=== PATIENT | female | born 1940 | race Asian ===

== ENCOUNTER → 2017-04-02 | Outpatient (CLI) | payer MEDICARE, OTHER ==
--- NOTE | 2017-04-02 10:30 | RADIOLOGY REPORT (SQ) ---
EXAM DESCRIPTION: MRI HEAD COMBO COMPLETED DATE/TIME: 04/02/2017 8:17 am REASON FOR STUDY: OTHER LOCALIZED VISUAL FIELD DEFECT, BILATERAL (H53.453) H53.453 OTHER LOCALIZED VISUAL FIELD DEFECT, BILATERAL COMPARISON: Whole-body bone scan 05/15/2015 TECHNIQUE: Multiplanar imaging includes noncontrasted T1, T2, FLAIR, diffusion with ADC map and post gadolinium contrast T1 sequences. Additional thin section coronal and axial T2 fat-sat, T1 precontrast coronal and axial images, T1 fat -sat postcontrast coronal and axial images through the orbits and sella. Images stored on PACS. CONTRAST TYPE AND DOSE: 10 mL Multihance. RENAL FUNCTION: GFR > 60. LIMITATIONS: None. FINDINGS: PITUITARY FOSSA: Along the rightward half of the anterior lobe pituitary, a 9 x 7 x 5 mm well-circumscribed nodule is present, intermediate signal on T2 and decreased signal on T1. This enh ances to a lesser degree than the [place] pituitary gland on the post-contrast images. There is a thi n rim of normal pituitary gland between this nodule and the right cavernous sinus on coronal T1 postc ontrast images 15-17. This likely represents a small microadenoma. Pituitary cyst or craniopharyngi freddy are also possible. There is no deviation of the pituitary stalk from midline. No impression on the optic chiasm. Suprasellar cistern is unremarkable on coronal T2 image 16. CSF SPACES: Normal in size and contour. No hemorrhage. CEREBRUM: Sulci and gyri normal in size and contour. Normal white matter signal on FLAIR imaging. No evidence of hemorrhage, mass, or extraaxial fluid collection. No abnormal enhancement post contrast. POSTERIOR FOSSA: No signal alteration. No hemorrhage. No edema, masses, or mass effect. Internal dave tory canals, cerebellopontine angles, mastoids normal. No enhancing lesions. No abnormal enhancement post contrast. DIFFUSION IMAGING: Negative for acute or subacute infarction. ORBITS: Globes are post bilateral cataract surgery. Optic nerves are unremarkable. No abnormal mass es or enhancement. Intra and extraconal fat, extraocular muscles, lacrimal apparatus unremarkable bi laterally. PARANASAL SINUSES: No fluid levels. Mucosa normal. OTHER: No other significant finding. IMPRESSION: Incidental finding of a 9 x 7 x 5 mm pituitary nodule likely a microadenoma. No mass ef fect on the optic chiasm. Midline infundibulum. No cavernous sinus involvement. Otherwise unremarkable MRI of the brain and orbits without and with contrast EVIDENCE OF ACUTE STROKE: NO. TECHNICAL DOCUMENTATION: JOB ID: [id number] [employer]- All Rights Reserved
== END ==
LOC: RAD 06:57
PROVIDERS: ATTEND Ophthalmology
DX: H53.453 Other localized visual field defect, bilateral (principal)
CPT/HCPCS: 82565; 70553; A9577

== ENCOUNTER → 2017-07-01 | Outpatient (CLI) | payer MEDICARE ==
--- NOTE | 2017-07-01 14:27 | RADIOLOGY REPORT (SQ) ---
EXAM DESCRIPTION: CT CHEST WITH COMPLETED DATE/TIME: 07/01/2017 1:12 pm REASON FOR STUDY: THORACIC AORTIC ANEURYSM, WITHOUT RUPTURE (I71.2) I71.2 THORACIC AORTIC ANEURYSM, WITHOUT RUPTURE COMPARISON: Thoracic spine two views 08/02/2015 TECHNIQUE: CT scan of the chest performed using helical scanning technique with dynamic intravenous contrast injection. Images reviewed with lung, soft tissue and bone windows. Reconstructed coronal and sagittal MPR images reviewed. All images stored on PACS. All CT scanners at this facility use dose modulation, iterative reconstruction, and/or weight based d osing when appropriate to reduce radiation dose to as low as reasonably achievable (ALARA). [facility]: Dose Right [facility]: CareDose [facility]: Dose Right [facility]: Teradose 4D [facility]: Dots ,LLC CONTRAST TYPE AND DOSE: contrast/concentration: Isovue 370.00 mg/ml; Total Contrast Delivered: 80.0 ml; Total Saline Delivered: 55.0 ml RENAL FUNCTION: Creatinine 0.8 RADIATION DOSE: CT Rad equipment meets quality standard of care and radiation dose reduction techniq ues were employed. CTDIvol: 5.8 mGy. DLP: 173 mGy-cm. . LIMITATIONS: None. FINDINGS: LUNGS AND PLEURA: 5 to 6 mm smooth round subpleural nodule left posterior costophrenic sul cus likely a noncalcified granuloma axial image 57. No acute infiltrates. No pleural effusion. No pneumothorax. Airways are patent. HILAR AND MEDIASTINAL STRUCTURES: No identified masses or abnormal nodes. HEART AND VASCULAR STRUCTURES: No aneurysm or dissection. No central pulmonary emboli. No pericardi al effusion. Minimal coronary artery calcification HARDWARE: None in the chest. UPPER ABDOMEN: Multiple hepatic cysts are present, the largest is 12 cm in the right lobe liver, next largest is 7 cm in the left lobe liver. Post cholecystectomy. Small hiatal hernia. THYROID AND OTHER SOFT TISSUES: No masses. No adenopathy. BONES: No significant finding. OTHER: No other significant finding. IMPRESSION: No CT evidence of thoracic aortic aneurysm Multiple hepatic cysts. TECHNICAL DOCUMENTATION: JOB ID: [id number] Quality ID # [id number]: Final reports with documentation of one or more dose reduction techniques (e.g., Au tomated exposure control, adjustment of the mA and/or kV according to patient size, use of iterative reconstruction technique) 2010 [employer]- All Rights Reserved
== END ==
LOC: RAD 12:30
PROVIDERS: ATTEND Specialist
DX: I71.2 Thoracic aortic aneurysm, without rupture (principal)
CPT/HCPCS: 71260; 82565

== ENCOUNTER 2018-02-23 10:46 | Emergency (ER) | payer MEDICARE, OTHER ==
--- NOTE | 2018-02-23 11:07 | ER Document Report ---
ED Cardiac <SHERLEY MO - Last Filed: 02/23/18 12:21> - General Mode of Arrival: Ambulatory Information source: Patient TRAVEL OUTSIDE OF THE U[place]. IN LAST 30 DAYS: No <NEL ALMONTE - Last Filed: 02/23/18 14:39> - General Stated Complaint: UNRESPONSIVE Time Seen by Provider: 02/23/18 10:51 Notes: Patient is a 77 year old female that presents to the emergency department today with complaints of a syncopal episode that occurred just prior to arrival. According to the , the patient's son was in another room and heard her fall down. When the son got to her she was minimally responsive. On arrival here, patient is alert and responsive with complaints of dizziness. Patient is bradycardic on the monitor here in the upper 30s lower 40s. (NEL ALMONTE) - Related Data Allergies/Adverse Reactions: No Known Allergies Allergy (Unverified 07/13/12 14:11) Past Medical History - General Information source: Patient - Social History Smoking Status: Never Smoker Cigarette use (# per day): No Frequency of alcohol use: None Drug Abuse: None Lives with: Family Family History: Reviewed & Not Pertinent - Past Medical History Cardiac Medical History: Reports: Hx Hypertension Past Surgical History: Reports: Hx Section, Hx Cholecystectomy, Hx Oral Surgery, Hx Orthopedic Surgery - Immunizations Immunizations up to date: Yes Hx Diphtheria, Pertussis, Tetanus Vaccination: No <NEL ALMONTE - Last Filed: 02/23/18 14:39> Review of Systems - Review of Systems Constitutional: No symptoms reported EENT: No symptoms reported Cardiovascular: See HPI, Syncope, Dizziness Respiratory: No symptoms reported Gastrointestinal: No symptoms reported Genitourinary: No symptoms reported Female Genitourinary: No symptoms reported Musculoskeletal: No symptoms reported Skin: No symptoms reported Hematologic/Lymphatic: No symptoms reported Neurological/Psychological: No symptoms reported -: Yes All other systems reviewed and negative <NEL ALMONTE - Last Filed: 02/23/18 14:39> Physical Exam <SHERLEY MO - Last Filed: 02/23/18 12:21> <NEL ALMONTE - Last Filed: 02/23/18 14:39> - Vital signs Vitals: Temp 98.0 F 02/23/18 10:51 - Notes Notes: Physical Exam: General: Alert, states she "just doesn't feel right". HEENT: Normocephalic. Atraumatic. PERRL. Extraocular movements intact. Oropharynx clear. Neck: Supple. Non-tender. Respiratory: No respiratory distress. Clear and equal breath sounds bilaterally. Cardiovascular: Bradycardic into the uppers 30s - low 40s, regular rhythm. Abdominal: Normal Inspection. Non-tender. No distension. Normal Bowel Sounds. Back: Non-tender. No deformity or step off. Extremities: Moves all four extremities. Upper extremities: Normal inspection. Normal ROM. Lower extremities: Normal inspection. No edema. Normal ROM. Neurological: Normal cognition. AAOx4. Normal speech. Psychological: Normal affect. Normal Mood. Skin: Warm. Dry. Normal color. (NEL ALMONTE) Course - Laboratory Result Diagrams: 02/23/18 11:13 02/23/18 11:13 - Diagnostic Test Radiology reviewed: Reports reviewed - Chest x-ray is read as mild pulmonary vascular congestion - EKG Interpretation by Ga EKG shows normal: [place], Intervals, ST-T Waves. abnormal: QRS Complexes - Wide QRS complex Rate: Bradycardia - 38 Heart block present: CHB (3rd degree block) When compared to previous EKG there are: Previous EKG unavailable <SHERLEY MO - Last Filed: 02/23/18 12:21> - Laboratory Result Diagrams: 02/23/18 11:13 02/23/18 11:13 <NEL ALMONTE - Last Filed: 02/23/18 14:39> - Vital Signs Vital signs: Temp Pulse Resp BP Pulse Ox 97.6 F 16 164/48 H 97 02/23/18 13:43 02/23/18 13:33 02/23/18 13:33 02/23/18 13:33 - Laboratory Laboratory results interpreted by wa: 02/23/18 02/23/18 02/23/18 11:13 11:13 11:13 Hct 35.9 L Seg Neutrophils % 40.2 L Lymphocytes % 50.8 H Sodium 146.1 H Potassium 2.8 L* Chloride 108 H BUN 25 H Glucose 169 H AST 37 H NT-Pro-B Natriuret Pep 2250 H Discharge <SHERLEY MO - Last Filed: 02/23/18 12:21> <NEL ALMONTE - Last Filed: 02/23/18 14:39> - Discharge Clinical Impression: Third degree heart block, Bradycardia, Syncope and collapse, Hypokalemia Condition: Good Disposition: [facility] Referrals: REMINGTON JONES MD [Primary Care Provider] - Follow up as needed Scribe Documentation - Scribe Written by Scribe:: Rudy Greene, 02/23/2018 1439 acting as scribe for :: Demario <NEL ALMNOTE - Last Filed: 02/23/18 14:39>
[2018-02-23 11:36] LABS: ABSOLUTE EOSINOPHILS # (AUTO) 0.2 10^3/uL (0.0-0.6); ABSOLUTE LYMPHOCYTES (AUTO) 3.7 10^3/uL (0.5-4.7); ABSOLUTE MONOCYTES (AUTO) 0.4 10^3/uL (0.1-1.4); ABSOLUTE NEUT (AUTO) 2.9 10^3/uL (1.7-8.2); BASOPHILS % (AUTO) 0.5 % (0-2); EOSINOPHILS % (AUTO) 3.1 % (0-6); HEMATOCRIT 35.9 % (36.0-47.0); HEMOGLOBIN 12.5 g/dL (12.0-15.5); LYMPHOCYTES % (AUTO) 50.8 % (13-45); MEAN CORPUSCULAR HEMOGLOBIN 32.5 pg (27.0-33.4); MEAN CORPUSCULAR HGB CONC 34.8 g/dL (32.0-36.0); MEAN CORPUSCULAR VOLUME 93 fl (80-97); MONOCYTES % (AUTO) 5.4 % (3-13); PLATELET COUNT 186 10^3/uL (150-450); RED BLOOD COUNT 3.85 10^6/uL (3.72-5.28); RED CELL DISTRIBUTION WIDTH 13.5 % (11.5-14.0); SEGMENTED NEUTROPHILS % (AUTO) 40.2 % (42-78); TOTAL CELLS COUNTED % (AUTO) 100 %; WHITE BLOOD COUNT 7.3 10^3/uL (4.0-10.5)
--- NOTE | 2018-02-23 12:05 | RADIOLOGY REPORT (SQ) ---
EXAM DESCRIPTION: CHEST SINGLE VIEW COMPLETED DATE/TIME: 02/23/2018 11:39 am REASON FOR STUDY: syncope, 3rd degree heart block COMPARISON: Chest CT scan dated June 2017 EXAM PARAMETERS: NUMBER OF VIEWS: One view. TECHNIQUE: Single frontal radiographic view of the chest acquired. RADIATION DOSE: NA LIMITATIONS: Study is limited somewhat due to overlying monitoring devices. FINDINGS: LUNGS AND PLEURA: No opacities, masses or pneumothorax. No pleural effusion. MEDIASTINUM AND HILAR STRUCTURES: No masses. Contour normal. HEART AND VASCULAR STRUCTURES: Cardiac silhouette appears mildly enlarged. There is mild pulmonary v ascular congestion BONES: No acute findings. HARDWARE: None in the chest. OTHER: No other significant finding. IMPRESSION: Somewhat limited study as noted above. Cardiac silhouette appears enlarged. There is m ild pulmonary vascular congestion. Other findings as noted above TECHNICAL DOCUMENTATION: JOB ID: [id number] [employer]- All Rights Reserved Reading location - IP/workstation name: [email or web address]
[2018-02-23 12:07] LABS: ALANINE AMINOTRANSFERASE 45 U/L (9-52); ALBUMIN 4.2 g/dL (3.5-5.0); ALKALINE PHOSPHATASE 96 U/L (38-126); ANION GAP 14 (5-19); ASPARTATE AMINO TRANSFERASE 37 U/L (14-36); BILIRUBIN,DIRECT 0.3 mg/dL (0.0-0.4); BILIRUBIN,TOTAL 0.7 mg/dL (0.2-1.3); BLOOD UREA NITROGEN 25 mg/dL (7-20); CALCIUM 9.1 mg/dL (8.4-10.2); CARBON DIOXIDE 24 mmol/L (22-30); CHLORIDE 108 mmol/L (98-107); CREATINE KINASE 84 U/L (30-135); GLUCOSE 169 mg/dL (75-110); SODIUM 146.1 mmol/L (137-145)
[2018-02-23 12:13] LABS: POTASSIUM 2.8 mmol/L (3.6-5.0)
[2018-02-23 12:14] LABS: CREATINE KINASE MB 0.54 ng/mL (<4.55)
[2018-02-23 12:16] LABS: TROPONIN I 0.069 ng/mL
[2018-02-23] MEDS ORDERED: POTASSI CL 20 MEQ/50 ML RIDER 20 MEQ/50 ML RTUPB IV ONE (12:18)
[2018-02-23 13:41] VITALS: BP 164/48
--- NOTE | 2018-02-23 22:19 | EKG REPORT ---
SEVERITY:- ABNORMAL ECG - COMPLETE AV BLOCK WITH WIDE QRS COMPLEX : Confirmed by: Dory Olivarez 23-Feb-2018 22:18:32
== END 2018-02-23 13:47 | disposition short-term general hospital (02) ==
LOC: ER 10:46
DX: I44.2 Atrioventricular block, complete (principal); R00.1 Bradycardia, unspecified; E87.6 Hypokalemia; R55 Syncope and collapse; I10 Essential (primary) hypertension; Z90.49 Acquired absence of other specified parts of digestive tract
CPT/HCPCS: 93005; 99285; 96365; 36415; 82553; 82550; 85025; 80053; 84484; 83880; 71045; 93010; J3480

== ENCOUNTER 2018-04-22 22:06 | Emergency (ER) | payer MEDICARE, OTHER ==
[2018-04-22] MEDS ORDERED: DEXTROSE 5%-WATER 500 ML with AMIODARONE HCL 900 MG IV PRN ×2 (22:10)
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
[2018-04-22] MEDS: LIDOCAINE HCL/D5W/PF 2,000 MG/250 ML RTUINJ IV PRN (22:43)
[2018-04-22 22:57] LABS: ABSOLUTE LYMPHOCYTES (AUTO) 1.5 10^3/uL (0.5-4.7); ABSOLUTE MONOCYTES (AUTO) 0.6 10^3/uL (0.1-1.4); BASOPHILS % (AUTO) 0.4 % (0-2); EOSINOPHILS % (AUTO) 0.5 % (0-6); HEMOGLOBIN 10.7 g/dL (12.0-15.5); MEAN CORPUSCULAR HEMOGLOBIN 32.2 pg (27.0-33.4); MEAN CORPUSCULAR HGB CONC 34.3 g/dL (32.0-36.0); MEAN CORPUSCULAR VOLUME 94 fl (80-97); MONOCYTES % (AUTO) 7.7 % (3-13); PLATELET COUNT 160 10^3/uL (150-450); RED BLOOD COUNT 3.31 10^6/uL (3.72-5.28); RED CELL DISTRIBUTION WIDTH 13.3 % (11.5-14.0); SEGMENTED NEUTROPHILS % (AUTO) 73.4 % (42-78); TOTAL CELLS COUNTED % (AUTO) 100 %; WHITE BLOOD COUNT 8.1 10^3/uL (4.0-10.5)
[2018-04-22 23:06] LABS: ANION GAP 8 (5-19); BLOOD UREA NITROGEN 15 mg/dL (7-20); CALCIUM 8.5 mg/dL (8.4-10.2); CARBON DIOXIDE 22 mmol/L (22-30); CHLORIDE 107 mmol/L (98-107); GLUCOSE 173 mg/dL (75-110); POTASSIUM 3.5 mmol/L (3.6-5.0); SODIUM 137.4 mmol/L (137-145)
--- NOTE | 2018-04-22 23:23 | RADIOLOGY REPORT (SQ) ---
EXAM DESCRIPTION: XR CHEST 1 VIEW COMPLETED DATE/TME: 04/22/2018 22:11 CLINICAL HISTORY: 77 years Female, sob COMPARISON: None. NUMBER OF VIEWS/TECHNIQUE: 1/AP FINDINGS: Adequate lung volume, clear parenchyma, normal cardiac silhouette, atherosclerosis, and intact bony thorax. Left lower lateral thoracic stimulator device with midline lead. IMPRESSION: No acute cardiopulmonary findings.
[2018-04-23] MEDS ORDERED: ACETAMINOPHEN 325 MG TABLET PO ONE ×2 (07:27→23:17)
[2018-04-23] MEDS ORDERED: LIDOCAINE HCL/D5W/PF 2,000 MG/250 ML RTUINJ IV ONE (12:16)
[2018-04-23] MEDS: DEXTROSE 5%-WATER 500 ML with AMIODARONE HCL 900 MG IV PRN ×2 (12:18)
[2018-04-23] MEDS ORDERED: LIDOCAINE RTU 2 GM/D5W 250 ML (8 MG/ML) PREMIX IV PRN (12:22)
--- NOTE | 2018-04-23 16:29 | ER Document Report ---
Doctor's Note Notes: 04/23/18 16:27 At approximately 10:30 AM spoke with nurse regarding the patient, patient has low-grade headache at this time, will administer Tylenol. Patient was continuously monitored throughout time in the emergency department during my care. Patient care was transitioned oncoming provider Dr. Castro until Dr. Thurston returns. No further incidents or events during this time.
[2018-04-23] MEDS ORDERED: ACETAMINOPHEN 325 MG TABLET ONE (23:14)
--- NOTE | 2018-04-23 23:56 | EKG REPORT ---
SEVERITY:- ABNORMAL ECG - VENTRICULAR-PACED COMPLEXES NONSPECIFIC INTRAVENTRICULAR CONDUCTION DELAY MINIMAL ST DEPRESSION, INFERIOR LEADS : Confirmed by: Dory Olivarez 23-Apr-2018 23:56:00
[2018-04-24] MEDS: DEXTROSE 5%-WATER 500 ML with AMIODARONE HCL 900 MG IV PRN ×2 (04:27)
[2018-04-24] MEDS: LIDOCAINE HCL/D5W/PF 2,000 MG/250 ML RTUINJ IV PRN (04:29)
[2018-04-24] MEDS ORDERED: ONDANSETRON HCL INJ/PF 4 MG/2 ML SDV IV ONE (07:33)
[2018-04-24] MEDS ORDERED: MECLIZINE HCL 12.5 MG TABLET PO ONE (07:38)
--- NOTE | 2018-04-24 15:30 | RADIOLOGY REPORT (SQ) ---
EXAM DESCRIPTION: CT HEAD WITHOUT COMPLETED DATE/TIME: 04/24/2018 3:20 pm REASON FOR STUDY: AMS COMPARISON: MRI head 04/02/2017. TECHNIQUE: Axial images acquired through the brain without intravenous contrast. Images reviewed wi th bone, brain and subdural windows. Images stored on PACS. All CT scanners at this facility use dose modulation, iterative reconstruction, and/or weight based d osing when appropriate to reduce radiation dose to as low as reasonably achievable (ALARA). [facility]: Dose Right [facility]: CareDose [facility]: Dose Right [facility]: Teradose 4D [facility]: [employer] RADIATION DOSE: CT Rad equipment meets quality standard of care and radiation dose reduction techniq ues were employed. CTDIvol: 53.2 - 55.2 mGy. DLP: 1857 mGy-cm. mGy. LIMITATIONS: Motion artifact. FINDINGS: VENTRICLES: Normal size and contour. CEREBRUM: No mass effect. No hemorrhage. No midline shift. Normal campa/white matter differentiatio n. No evidence for acute territorial infarction. CEREBELLUM: No mass effect. No hemorrhage. No alteration of density. No evidence for acute infarct ion. EXTRAAXIAL SPACES: No fluid collections. ORBITS AND GLOBE: Symmetrical contour of the globes. CALVARIUM: No depressed skull fracture. PARANASAL SINUSES: No air-fluid level. SOFT TISSUES: No hematoma. IMPRESSION: No acute intracranial hemorrhage or acute territorial infarct. EVIDENCE OF ACUTE STROKE: NO. COMMENT: Quality ID # [id number]: Final reports with documentation of one or more dose reduction techniques (e.g., Automated exposure control, adjustment of the mA and/or kV according to patient size, use of iterative reconstruction technique) TECHNICAL DOCUMENTATION: JOB ID: [id number] [place]-64 2010 [employer]- All Rights Reserved Reading location - IP/workstation name: [email or web address]
--- NOTE | 2018-04-24 15:55 | RADIOLOGY REPORT (SQ) ---
EXAM DESCRIPTION: CHEST SINGLE VIEW COMPLETED DATE/TIME: 04/24/2018 3:42 pm REASON FOR STUDY: ams COMPARISON: 04/22/2018 NUMBER OF VIEWS: One view. TECHNIQUE: Single frontal radiographic view of the chest acquired. LIMITATIONS: None. FINDINGS: LUNGS AND PLEURA: No opacities, masses or pneumothorax. No pleural effusion. MEDIASTINUM AND HILAR STRUCTURES: No masses or contour abnormality. HEART AND VASCULATURE: Cardiac enlargement. Vascular congestion. BONES: No acute findings. HARDWARE: Device unchanged OTHER: No other significant finding. IMPRESSION: CARDIAC ENLARGEMENT. VASCULAR CONGESTION. TECHNICAL DOCUMENTATION: JOB ID: [id number] [employer]- All Rights Reserved Reading location - IP/workstation name: [email or web address]
[2018-04-24 16:12] LABS: VENOUS BLOOD BASE EXCESS -1.2 mmol/L; VENOUS BLOOD HCO3 22.6 mmol/L (20-32); VENOUS BLOOD PCO2 35.1 mmHg (35-63); VENOUS BLOOD PH 7.43 (7.30-7.42)
[2018-04-24 16:15] LABS: ABSOLUTE LYMPHOCYTES (AUTO) 0.9 10^3/uL (0.5-4.7); ABSOLUTE MONOCYTES (AUTO) 0.4 10^3/uL (0.1-1.4); ABSOLUTE NEUT (AUTO) 8.5 10^3/uL (1.7-8.2); BASOPHILS % (AUTO) 0.1 % (0-2); HEMATOCRIT 30.7 % (36.0-47.0); HEMOGLOBIN 10.7 g/dL (12.0-15.5); LYMPHOCYTES % (AUTO) 9.1 % (13-45); MEAN CORPUSCULAR HEMOGLOBIN 32.7 pg (27.0-33.4); MEAN CORPUSCULAR HGB CONC 34.9 g/dL (32.0-36.0); MEAN CORPUSCULAR VOLUME 94 fl (80-97); MONOCYTES % (AUTO) 3.8 % (3-13); PLATELET COUNT 200 10^3/uL (150-450); RED BLOOD COUNT 3.27 10^6/uL (3.72-5.28); RED CELL DISTRIBUTION WIDTH 13.6 % (11.5-14.0); TOTAL CELLS COUNTED % (AUTO) 100 %; WHITE BLOOD COUNT 9.8 10^3/uL (4.0-10.5)
[2018-04-24 16:25] LABS: INTERNATIONAL RATION (INR) 1.19; PARTIAL THROMBOPLASTIN TIME 27.3 SEC (23.5-35.8); PROTHROMBIN TIME 15.7 SEC (11.4-15.4)
[2018-04-24 16:32] LABS: APPEARANCE,URINE CLEAR; BILIRUBIN,URINE NEGATIVE (NEGATIVE); COLOR,URINE YELLOW; GLUCOSE, URINE 50 mg/dL (NEGATIVE)
[2018-04-24 16:33] LABS: KETONES,URINE 100 mg/dL (NEGATIVE); LEUKOCYTE ESTERASE,URINE NEGATIVE (NEGATIVE); NITRITE,URINE NEGATIVE (NEGATIVE); PROTEIN,URINE 100 mg/dL (NEGATIVE); URINE SPECIFIC GRAVITY 1.017; UROBILINOGEN,URINE NEGATIVE mg/dL (<2.0)
[2018-04-24 16:36] LABS: ALANINE AMINOTRANSFERASE 35 U/L (9-52); ALBUMIN 3.7 g/dL (3.5-5.0); ALKALINE PHOSPHATASE 74 U/L (38-126); ANION GAP 10 (5-19); ASPARTATE AMINO TRANSFERASE 29 U/L (14-36); BILIRUBIN,DIRECT 0.6 mg/dL (0.0-0.4); BILIRUBIN,TOTAL 1.2 mg/dL (0.2-1.3); BLOOD UREA NITROGEN 10 mg/dL (7-20); CALCIUM 8.6 mg/dL (8.4-10.2); CARBON DIOXIDE 25 mmol/L (22-30); CHLORIDE 100 mmol/L (98-107); GLUCOSE 176 mg/dL (75-110); POTASSIUM 3.2 mmol/L (3.6-5.0); TOTAL PROTEIN 6.7 g/dL (6.3-8.2)
[2018-04-24 16:56] VITALS: BP 158/55
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
== END 2018-04-24 17:03 | disposition short-term general hospital (02) ==
LOC: ER 22:06
DX: I47.2 Ventricular tachycardia (principal); Z95.810 Presence of automatic (implantable) cardiac defibrillator; R41.0 Disorientation, unspecified; X37.0XXA Hurricane, initial encounter; R51 Headache; I10 Essential (primary) hypertension; E78.5 Hyperlipidemia, unspecified; I25.10 Atherosclerotic heart disease of native coronary artery without angina pectoris
CPT/HCPCS: 93005; 99285; 96365; 96366; 36415; 82962; 85025; 85610; 85730; 80048; 80053; 81001; 84484; 82803; 83605; 71045 ×2; 70450; 93010; A9270 ×2; J2001 ×2; J2405; J7060 ×3; J0282 ×3; J3490

== ENCOUNTER 2018-11-23 14:24 | Inpatient (IN) | payer MEDICARE, OTHER ==
--- NOTE | 2018-11-23 15:06 | ER Document Report ---
ED Medical Screen (RME) - General Chief Complaint: Breathing Difficulty Stated Complaint: DIFFICULTY BREATHING Time Seen by Provider: 11/23/18 14:56 Primary Care Provider: ROLF LEE MD [Primary Care Provider] - Follow up as needed Notes: Patient is a 77-year-old [place] who is coming in today with chief complaint of shortness of breath. She has a history of congestive heart failure and is on multiple medications for different cardiac problems. Symptoms started yesterday with some incomplete swelling in her legs and more rapid breathing and obvious respiratory distress. I have treated and performed a rapid initial assessment of this patient. A comprehensive ED assessment and evaluation of the patient, analysis of test results and completion of medical decision making process will be conducted by additional ED providers. PHYSICAL EXAMINATION: GENERAL: Chronically ill-appearing. Mild to moderate respiratory distress LUNGS: Expiratory wheezing, dyspnea, tachypnea Extremities: 1+ bilateral lower extremity edema TRAVEL OUTSIDE OF THE [place] IN LAST 30 DAYS: No - Related Data Allergies/Adverse Reactions: No Known Allergies Allergy (Verified 11/23/18 14:24) Past Medical History - Social History Frequency of alcohol use: None Drug Abuse: None - Past Medical History Cardiac Medical History: Reports: Hx Congestive Heart Failure, Hx Hypertension Denies: Hx Heart Attack Pulmonary Medical History: Denies: Hx Asthma Neurological Medical History: Denies: Hx Cerebrovascular Accident, Hx Seizures Renal/ Medical History: Denies: Hx Peritoneal Dialysis GI Medical History: Denies: Hx Hepatitis, Hx Hiatal Hernia, Hx Ulcer Infectious Medical History: Denies: Hx Hepatitis Past Surgical History: Reports: Hx Cardiac Surgery - pacemaker/ icd, Hx Section, Hx Cholecystectomy, Hx Oral Surgery, Hx Orthopedic Surgery. Denies: Hx Mastectomy, Hx Open Heart Surgery, Hx Pacemaker - Immunizations Immunizations up to date: Yes Hx Diphtheria, Pertussis, Tetanus Vaccination: No Physical Exam - Vital signs Vitals: Pulse Resp BP Pulse Ox 80 24 H 144/86 H 94 11/23/18 14:57 11/23/18 14:57 11/23/18 14:57 11/23/18 14:57 Course - Vital Signs Vital signs: Temp Pulse Resp BP Pulse Ox 80 24 H 144/86 H 98 11/23/18 14:57 11/23/18 14:57 11/23/18 14:57 11/23/18 15:02 Doctor's Discharge - Discharge Referrals: ROLF LEE MD [Primary Care Provider] - Follow up as needed
[2018-11-23 15:36] LABS: ABSOLUTE LYMPHOCYTES (AUTO) 1.6 10^3/uL (0.5-4.7); ABSOLUTE MONOCYTES (AUTO) 0.6 10^3/uL (0.1-1.4); ABSOLUTE NEUT (AUTO) 6.3 10^3/uL (1.7-8.2); BASOPHILS % (AUTO) 0.3 % (0-2); EOSINOPHILS % (AUTO) 0.1 % (0-6); HEMATOCRIT 38.1 % (36.0-47.0); HEMOGLOBIN 12.9 g/dL (12.0-15.5); LYMPHOCYTES % (AUTO) 18.4 % (13-45); MEAN CORPUSCULAR HGB CONC 33.8 g/dL (32.0-36.0); MEAN CORPUSCULAR VOLUME 92 fl (80-97); MONOCYTES % (AUTO) 6.5 % (3-13); PLATELET COUNT 167 10^3/uL (150-450); RED BLOOD COUNT 4.15 10^6/uL (3.72-5.28); RED CELL DISTRIBUTION WIDTH 18.5 % (11.5-14.0); SEGMENTED NEUTROPHILS % (AUTO) 74.7 % (42-78); TOTAL CELLS COUNTED % (AUTO) 100 %; WHITE BLOOD COUNT 8.5 10^3/uL (4.0-10.5)
--- NOTE | 2018-11-23 15:39 | ER Document Report ---
ED General - General Chief Complaint: Breathing Difficulty Stated Complaint: DIFFICULTY BREATHING Time Seen by Provider: 11/23/18 14:56 Primary Care Provider: ROLF LEE MD [Primary Care Provider] - Follow up as needed Notes: Patient is a 77-year-old female with history of heart failure and hypertension that presents to the emergency department for chief complaint of shortness of breath and dyspnea on exertion. Patient has overall not been feeling well the last few days, she has had cough, shortness of breath, and intermittent vomiting over the past few days. Has been provided most of the history. She had her visiting nurse come and see her and they are concerned she was holding fluid on her lungs so they advised that she come to the emergency department. She does have a history of a pacemaker defibrillator as well. She denies having any chest pain at this time. Past Medical History: CHF, hypertension, CAD Past Surgical History: PCI with stenting, pacemaker defibrillator Social History: Denies tobacco, alcohol or drug use. Family History: Reviewed and noncontributory for presenting illness Allergies: Reviewed, see documented allergy list. REVIEW OF SYSTEMS: Other than noted above, the 12 point review of systems was reviewed with the patient and were negative, all pertinent findings are included in the HPI. PHYSICAL EXAMINATION: Vital signs reviewed, nursing noted reviewed. GENERAL: Elderly female, appears uncomfortable HEAD: Atraumatic, normocephalic. EYES: Eyes appear normal, extraocular movements intact, sclera anicteric, conjunctiva are normal. ENT: nares patent, oropharynx clear without exudates. Moist mucous membranes. NECK: Normal range of motion, supple without lymphadenopathy LUNGS: Crackles noted at the bases bilaterally, upper lung bowen, are diminish ed, mild increased work of breathing. HEART: Regular rate and rhythm without murmurs ABDOMEN: Soft, nontender, normoactive bowel sounds. No rebound, guarding, or rigidity. No masses appreciated. EXTREMITIES: Nontender, good range of motion, no pitting or edema. NEUROLOGICAL: No focal neurological deficits. Moves all extremities spontaneously Motor and sensory grossly intact on exam. PSYCH: Normal mood, normal affect. SKIN: Warm, Dry, normal turgor, no rashes or lesions noted on exposed skin TRAVEL OUTSIDE OF THE [place] IN LAST 30 DAYS: No - Related Data Allergies/Adverse Reactions: No Known Allergies Allergy (Verified 11/23/18 14:24) Past Medical History - Social History Smoking Status: Never Smoker Frequency of alcohol use: None Drug Abuse: None Family History: Reviewed & Not Pertinent Patient has suicidal ideation: No Patient has homicidal ideation: No - Past Medical History Cardiac Medical History: Reports: Hx Congestive Heart Failure, Hx Hypertension Denies: Hx Heart Attack Pulmonary Medical History: Denies: Hx Asthma Neurological Medical History: Denies: Hx Cerebrovascular Accident, Hx Seizures Renal/ Medical History: Denies: Hx Peritoneal Dialysis GI Medical History: Denies: Hx Hepatitis, Hx Hiatal Hernia, Hx Ulcer Infectious Medical History: Denies: Hx Hepatitis Past Surgical History: Reports: Hx Cardiac Surgery - pacemaker/ icd, Hx Section, Hx Cholecystectomy, Hx Oral Surgery, Hx Orthopedic Surgery. Denies: Hx Mastectomy, Hx Open Heart Surgery, Hx Pacemaker - Immunizations Immunizations up to date: Yes Hx Diphtheria, Pertussis, Tetanus Vaccination: No Physical Exam - Vital signs Vitals: Pulse Resp BP Pulse Ox 80 24 H 144/86 H 94 11/23/18 14:57 11/23/18 14:57 11/23/18 14:57 11/23/18 14:57 Course - Re-evaluation Re-evalutation: Patient seen and examined vital signs reviewed. Laboratory data and imaging were ordered as appropriate for the patient's presenting symptoms and complaint, with consideration of any critical or life threatening conditions that may be associated with their obtained history and exam as noted above. Patient was treated with IV Lasix, and started on IV Rocephin and doxycycline, after reviewing CT imaging of the chest, that was possible infection versus pulmonary edema or both. Results were reviewed when available and demonstrated no leukocytosis, she had a mild acute kidney injury based on her prior labs, and was noted to have infi ltrates, groundglass opacities in both lungs on CT imaging. Concerning for pulmonary edema versus pneumonia, her BNP was also noted to be markedly elevated at 22,000 compared with prior labs. The patient was re-evaluated and was stable, Estrada catheter was placed Evaluation was most consistent with acute CHF exacerbation, pneumonia, acute kidney injury, Results were discussed with the patient at this point after careful consideration I feel that that patient should be admitted to the hospital. This was discussed with the patient that it is in the best interest for their care to be admitted for further evaluation and management. Patient agreed with this plan of care. A call was placed to the admitted physician, Dr. Dc who graciously accepted the patient onto their service. *Note is created using voice recognition software and may contain spelling, syntax or grammatical errors. Laboratory 11/23/18 11/23/18 11/23/18 15:20 15:20 15:20 WBC 8.5 RBC 4.15 Hgb 12.9 Hct 38.1 MCV 92 MCH 31.0 MCHC 33.8 RDW 18.5 H Plt Count 167 Seg Neutrophils % 74.7 Lymphocytes % 18.4 Monocytes % 6.5 Eosinophils % 0.1 Basophils % 0.3 Absolute Neutrophils 6.3 Absolute Lymphocytes 1.6 Absolute Monocytes 0.6 Absolute Eosinophils 0.0 Absolute Basophils 0.0 Sodium 139.0 Potassium 4.1 Chloride 103 Carbon Dioxide 24 Anion Gap 12 BUN 20 Creatinine 1.49 H Est GFR ( Amer) 41 L Est GFR (Non-Af Amer) 34 L Glucose 165 H Calcium 9.9 Total Bilirubin 1.3 Direct Bilirubin 0.7 H Neonat Total Bilirubin Not Reportable Neonat Direct Bilirubin Not Reportable Neonat Indirect Bili Not Reportable AST 78 H ALT 39 Alkaline Phosphatase 120 Troponin I 0.039 NT-Pro-B Natriuret Pep 41003 H Total Protein 8.2 Albumin 4.3 Chest X-Ray 11/23/18 14:59 IMPRESSION: Low volume AP examination. Cardiomegaly without acute abnormality of the lungs. No focal airspace opacity. Chest CT 11/23/18 16:11 IMPRESSION: 1. CARDIOMEGALY. CHRONIC INTERSTITIAL CHANGES IN THE LUNGS. SCATTERED PATCHY GROUND-GLASS OPACITIES THROUGHOUT BOTH LUNGS. THESE ARE NONSPECIFIC BUT COULD BE DUE TO PNEUMONITIS SECONDARY TO INFLAMMATION OR INFECTION. DEVELOPING PULMONARY EDEMA COULD BE ANOTHER ETIOLOGY. 2. MULTIPLE LARGE HEPATIC CYSTS, UNCHANGED FROM THE PRIOR CT. - Vital Signs Vital signs: Temp Pulse Resp BP Pulse Ox 98.0 F 80 24 H 144/86 H 98 11/23/18 15:20 11/23/18 14:57 11/23/18 14:57 11/23/18 14:57 11/23/18 15:02 - Laboratory Result Diagrams: 11/23/18 15:20 11/23/18 15:20 Laboratory results interpreted by me: 11/23/18 11/23/18 11/23/18 15:20 15:20 15:20 RDW 18.5 H Creatinine 1.49 H Est GFR ( Amer) 41 L Est GFR (Non-Af Amer) 34 L Glucose 165 H Direct Bilirubin 0.7 H AST 78 H NT-Pro-B Natriuret Pep 40149 H - EKG Interpretation by Me Additional EKG results interpreted by me: EKG demonstrates accelerated junctional rhythm with a ventricular rate of 80 bpm, right axis deviation, QTC prolonged at 522 ms, presence of nonspecific intraventricular conduction delay, no ST elevation, this is compared with the prior EKG from 04/22/2018, without significant change. Discharge - Discharge Clinical Impression: WINSOME (acute kidney injury) Acute exacerbation of CHF (congestive heart failure) Qualifiers: Heart failure type: unspecified Qualified Code(s): I50.9 - Heart failure, unspecified Pneumonia Qualifiers: Pneumonia type: due to unspecified organism Laterality: bilateral Lung location: unspecified part of lung Qualified Code(s): J18.9 - Pneumonia, unspecified organism Condition: Stable Disposition: ADMITTED INPATIENT Admitting Provider: Vanda (Hospitalist) Unit Admitted: IMCU Referrals: ROLF LEE MD [Primary Care Provider] - Follow up as needed
--- NOTE | 2018-11-23 15:55 | RADIOLOGY REPORT (SQ) ---
EXAM DESCRIPTION: CHEST SINGLE VIEW COMPLETED DATE/TIME: 11/23/2018 3:45 pm REASON FOR STUDY: sob chf COMPARISON: 04/24/2018 EXAM PARAMETERS: NUMBER OF VIEWS: One view. TECHNIQUE: Single frontal radiographic view of the chest acquired. RADIATION DOSE: NA LIMITATIONS: None. FINDINGS: LUNGS AND PLEURA: No opacities, masses or pneumothorax. No pleural effusion. MEDIASTINUM AND HILAR STRUCTURES: No masses. Contour normal. HEART AND VASCULAR STRUCTURES: Cardiomegaly with left chest pacer defibrillator. BONES: No acute findings. HARDWARE: None in the chest. OTHER: No other significant finding. IMPRESSION: Low volume AP examination. Cardiomegaly without acute abnormality of the lungs. No foc al airspace opacity. TECHNICAL DOCUMENTATION: JOB ID: [id number] [employer]- All Rights Reserved Reading location - IP/workstation name: [email or web address]
[2018-11-23 16:01] LABS: ALANINE AMINOTRANSFERASE 39 U/L (9-52); ALBUMIN 4.3 g/dL (3.5-5.0); ALKALINE PHOSPHATASE 120 U/L (38-126); ANION GAP 12 (5-19); ASPARTATE AMINO TRANSFERASE 78 U/L (14-36); BILIRUBIN,DIRECT 0.7 mg/dL (0.0-0.4); BILIRUBIN,TOTAL 1.3 mg/dL (0.2-1.3); BLOOD UREA NITROGEN 20 mg/dL (7-20); CALCIUM 9.9 mg/dL (8.4-10.2); CARBON DIOXIDE 24 mmol/L (22-30); CHLORIDE 103 mmol/L (98-107); GLUCOSE 165 mg/dL (75-110); POTASSIUM 4.1 mmol/L (3.6-5.0); TOTAL PROTEIN 8.2 g/dL (6.3-8.2)
[2018-11-23 16:19] LABS: TROPONIN I 0.039 ng/mL
--- NOTE | 2018-11-23 16:41 | RADIOLOGY REPORT (SQ) ---
EXAM DESCRIPTION: CT CHEST WITHOUT COMPLETED DATE/TIME: 11/23/2018 4:26 pm REASON FOR STUDY: shortness of breath COMPARISON: Chest x-ray dated 11/23/2018. Chest CT dated 07/01/2017. TECHNIQUE: CT scan performed of the chest without intravenous contrast. Images reviewed with lung, soft tissue and bone windows. Reconstructed coronal and sagittal MPR images reviewed. All images st ored on PACS. All CT scanners at this facility use dose modulation, iterative reconstruction, and/or weight based d osing when appropriate to reduce radiation dose to as low as reasonably achievable (ALARA). [facility]: Dose Right [facility]: CareDose [facility]: Dose Right [facility]: Teradose 4D [facility]: Trivie RADIATION DOSE: CT Rad equipment meets quality standard of care and radiation dose reduction techniq ues were employed. CTDIvol: 6.3 mGy. DLP: 217 mGy-cm. mGy. LIMITATIONS: No technical limitations. FINDINGS: LUNGS AND PLEURA: Chronic interstitial changes. Scattered patchy ground-glass opacities t hroughout both lungs. No pleural effusions or pleural calcifications. HILAR AND MEDIASTINAL STRUCTURES: No identified masses or abnormal nodes. No obvious aneurysm. HEART AND VASCULAR STRUCTURES: No aneurysm. Cardiomegaly. No pericardial effusion. UPPER ABDOMEN: Multiple hepatic cysts, unchanged. Limited exam. THYROID AND OTHER SOFT TISSUES: No masses. No adenopathy. BONES: No significant finding. HARDWARE: Implanted cardiac device. OTHER: No other significant findings. IMPRESSION: 1. CARDIOMEGALY. CHRONIC INTERSTITIAL CHANGES IN THE LUNGS. SCATTERED PATCHY GROUND-GLASS OPACITIES THROUGHOUT BOTH LUNGS. THESE ARE NONSPECIFIC BUT COULD BE DUE TO PNEUMONITIS SECONDARY TO INFLAMMAT ION OR INFECTION. DEVELOPING PULMONARY EDEMA COULD BE ANOTHER ETIOLOGY. 2. MULTIPLE LARGE HEPATIC CYSTS, UNCHANGED FROM THE PRIOR CT. TECHNICAL DOCUMENTATION: JOB ID: [id number] Quality ID # [id number]: Final reports with documentation of one or more dose reduction techniques (e.g., Au tomated exposure control, adjustment of the mA and/or kV according to patient size, use of iterative reconstruction technique) 2010 [employer]- All Rights Reserved Reading location - IP/workstation name: [email or web address]
[2018-11-23] MEDS ORDERED: FUROSEMIDE INJ/PF 40 MG/4 ML SDV IV ONE (16:56)
[2018-11-23] MEDS ORDERED: CEFTRIAXONE 2 GM/D5W RTU 2 GM/50 ML RTUPB IV ONE (16:58)
[2018-11-23] MEDS ORDERED: DOXYCYCLINE HYCLATE INJ 100 MG VIAL IV ONE (16:59)
[2018-11-23] MEDS ORDERED: ONDANSETRON HCL INJ/PF 4 MG/2 ML SDV IV PRN (17:34)
[2018-11-23] MEDS ORDERED: ENALAPRILAT DIHYDRATE INJ/PF 1.25 MG/1 ML SDV IV PRN (17:34)
[2018-11-23] MEDS ORDERED: ACETAMINOPHEN 325 MG TABLET PO PRN (17:34)
[2018-11-23] MEDS ORDERED: VITAMIN D3 PO SCH (17:45)
[2018-11-23] MEDS ORDERED: ENOXAPARIN SODIUM INJ 40 MG/0.4 ML DISP.SYRIN SUBCUT SCH (17:45)
[2018-11-23] MEDS ORDERED: CALCIUM CARBONATE PO SCH (17:45)
[2018-11-23] MEDS ORDERED: FUROSEMIDE INJ/PF 100 MG/10 ML SDV IV SCH (17:45)
--- NOTE | 2018-11-23 18:02 | PDOC H&P ---
History of Present Illness Admission Date/PCP: 11/23/18 17:33 ROLF LEE MD Patient complains of: Shortness of breath for the last 3 days History of Present Illness: LULI NOLAND is a 77 year old female with history of congestive heart failure, defibrillator placement, hypertension, hypothyroidism, hyperlipidemia, coronary artery disease stent placement in LAD, came to the emergency room with complaints of 3 days history of shortness of breath. As per the patient and family members she is having the increasing shortness of breath for the last 2-3 days. Shortness of breath associated with cough with whitish sputum. Denies any fever but vomited several times since yesterday. Denies any diarrhea or constipation. Complaining of chest tightness. Denies any headaches dizzy spells. Denies any rashes. Denies any problems with urination. As per the family patient is compliant with Lasix. She is a 1 pill at night to sleep. also given the history of fall yesterday onto the carpet. Workup was done in the emergency room CT scan of the chest indicated bilateral groundglass opacifications suggestive of pneumonia and pulmonary edema. Medical consult was called for admission. Past Medical History Cardiac Medical History: Reports: Congestive Heart Failure, Hypertension, Heart Murmur Denies: Myocardial Infarction Pulmonary Medical History: Denies: Asthma Neurological Medical History: Denies: Seizures Endocrine Medical History: Reports: Hypothyroidism GI Medical History: Denies: Hepatitis, Hiatal Hernia Musculoskeletal History Note: Back surgery Hematology: Denies: Anemia, Sickle Cell Disease Past Surgical History Past Surgical History: Reports: Section, Cholecystectomy, Coronary Stent, Orthopedic Surgery Denies: Amputation, Mastectomy, Pacemaker Social History Information Source: Patient Lives with: Family Smoking Status: Never Smoker Frequency of Alcohol Use: None Hx Recreational Drug Use: No Hx Prescription Drug Abuse: No - Advance Directive Resuscitation Status: Full Code Family History Family History: Reviewed & Not Pertinent Parental Family History Reviewed: Yes - Heart disease in the family Children Family History Reviewed: Yes Sibling(s) Family History Reviewed.: Yes Medication/Allergy Home Medications: Aspirin [Ecotrin 81 mg EC Tablet] 81 mg PO DAILY 07/13/12 Atorvastatin Calcium [Lipitor 40 mg Tablet] 40 mg PO QHS 07/13/12 Calcium Carbonate/Vitamin D3 [Calcium 500+D Tablet Chew] 1 each PO DAILY 07/13/12 Cetirizine HCl [Zyrtec 10 mg Tablet] 10 mg PO DAILY 04/22/18 Levothyroxine Sodium [Synthroid 0.088 mg Tablet] 0.088 mg PO Q6AM 04/22/18 Multivitamin [Tab-A-Anyi (Multiple Vitamin) Tablet] 1 tab PO DAILY 04/22/18 Allergies/Adverse Reactions: No Known Allergies Allergy (Verified 11/23/18 14:24) Review of Systems Constitutional: PRESENT: weight loss. ABSENT: fatigue, fever(s), headache(s), night sweats, weakness Cardiovascular: PRESENT: other - Chest tightness Respiratory: PRESENT: cough, dyspnea, sputum Gastrointestinal: PRESENT: vomiting Neurological: PRESENT: frequent falls Psychiatric: ABSENT: anxiety, depression, homidical ideation, suicidal ideation Physical Exam Vital Signs: Temp Pulse Resp BP Pulse Ox 98.0 F 80 24 H 144/86 H 98 11/23/18 15:20 11/23/18 14:57 11/23/18 14:57 11/23/18 14:57 11/23/18 15:02 Intake & Output 11/22/18 11/23/18 11/24/18 06:59 06:59 06:59 Weight 53.2 kg General appearance: PRESENT: cooperative, mild distress Head exam: PRESENT: atraumatic Eye exam: PRESENT: PERRLA Teeth exam: PRESENT: edentulous Neck exam: ABSENT: carotid bruit, JVD, lymphadenopathy, thyromegaly Respiratory exam: PRESENT: crackles, decreased breath sounds, rhonchi, wheezes Cardiovascular exam: PRESENT: systolic murmur Pulses: PRESENT: normal dorsalis pedis pul GI/Abdominal exam: PRESENT: normal bowel sounds, soft. ABSENT: distended, guarding, mass, organolmegaly, rebound, tenderness Extremities exam: PRESENT: full ROM. ABSENT: calf tenderness, clubbing, pedal edema Neurological exam: PRESENT: alert, awake, oriented to person, oriented to place, oriented to time, oriented to situation, CN II-XII grossly intact. ABSENT: motor sensory deficit Psychiatric exam: PRESENT: appropriate affect, normal mood. ABSENT: homicidal ideation, suicidal ideation Results Laboratory Results: 11/23/18 15:20 11/23/18 15:20 11/23/18 11/23/18 15:20 15:20 WBC 8.5 RBC 4.15 Hgb 12.9 Hct 38.1 MCV 92 MCH 31.0 MCHC 33.8 RDW 18.5 H Plt Count 167 Seg Neutrophils % 74.7 Lymphocytes % 18.4 Monocytes % 6.5 Eosinophils % 0.1 Basophils % 0.3 Absolute Neutrophils 6.3 Absolute Lymphocytes 1.6 Absolute Monocytes 0.6 Absolute Eosinophils 0.0 Absolute Basophils 0.0 Sodium 139.0 Potassium 4.1 Chloride 103 Carbon Dioxide 24 Anion Gap 12 BUN 20 Creatinine 1.49 H Est GFR ( Amer) 41 L Est GFR (Non-Af Amer) 34 L Glucose 165 H Calcium 9.9 Total Bilirubin 1.3 AST 78 H ALT 39 Alkaline Phosphatase 120 Total Protein 8.2 Albumin 4.3 11/23/18 15:20 Troponin I 0.039 NT-Pro-B Natriuret Pep 34129 H Impressions: Chest X-Ray 11/23/18 14:59 IMPRESSION: Low volume AP examination. Cardiomegaly without acute abnormality of the lungs. No focal airspace opacity. Chest CT 11/23/18 16:11 IMPRESSION: 1. CARDIOMEGALY. CHRONIC INTERSTITIAL CHANGES IN THE LUNGS. SCATTERED PATCHY GROUND-GLASS OPACITIES THROUGHOUT BOTH LUNGS. THESE ARE NONSPECIFIC BUT COULD BE DUE TO PNEUMONITIS SECONDARY TO INFLAMMATION OR INFECTION. DEVELOPING PULMONARY EDEMA COULD BE ANOTHER ETIOLOGY. 2. MULTIPLE LARGE HEPATIC CYSTS, UNCHANGED FROM THE PRIOR CT. Assessment and Plan - Diagnosis (1) Acute exacerbation of CHF (congestive heart failure) Qualifiers: Heart failure type: unspecified Qualified Code(s): I50.9 - Heart failure, unspecified Is this a current diagnosis for this admission?: Yes Plan: 11/23/2018-patient is going to be admitted to [facility] for acute exacerbation of chronic CHF and for pneumonia. Patient is going to be admitted as inpatient. Patient is a full code. Started on IV Rocephin 2 g daily and IV doxycycline. Blood cultures sputum cultures are requested. Start on Lasix 40 mg IV twice a day and requested cardiology consult. Cardiac enzymes x3 are requested. Patient was placed on oxygen 2 L nasal cannula. Orders for as needed BiPAP was placed.. Estrada's catheter was in place for strict input output chart. Fluid restriction was advised 1500 mL/day. Prophylaxis DVT prophylaxis was provided. PT consult also going to be requested before for falls. Echocardiogram was requested. X-ray shows cardiomegaly and BNP is 22,000. Chest x-ray also shows bilateral pulmonary edema. Most likely patient have a chronic systolic heart failure. (2) Pneumonia Qualifiers: Pneumonia type: due to unspecified organism Laterality: bilateral Lung location: unspecified part of lung Qualified Code(s): J18.9 - Pneumonia, unspecified organism Is this a current diagnosis for this admission?: Yes Plan: 11/23/2018-patient was admitted with bilateral pneumonia and shortness of breath. Patient is given the history of productive cough with whitish sputum. Started on IV ceftriaxone 2 g daily and IV doxycycline. Blood cultures sputum cultures are requested. As needed BiPAP orders are in place. Start on oxygen 2 L nasal cannula. Most likely community-acquired pneumonia possible gram-positive organisms. (3) WINSOME (acute kidney injury) Is this a current diagnosis for this admission?: Yes Plan: 11/23/2018-patient creatinine on admission is 1.49 baseline creatinine is around 1.1. Acute kidney injury most likely secondary to prerenal causes. Plan to check the labs on regular basis. Patient might have underlying stage II to stage III kidney disease. (4) Hypertension Is this a current diagnosis for this admission?: No Plan: 11/23/2018-patient has history of chronic hypertension most likely essential hypertension. At home she is on furosemide 20 mg p.o. daily, lisinopril 20 mg p.o. daily plan is to resume those medications during the hospital stay. (5) Coronary artery disease Is this a current diagnosis for this admission?: No Plan: 11/23/2018-family is giving the history of coronary artery disease status post stent placement in [facility]. Patient complained of chest tightness in the emergency room. Initial troponin slightly elevated may be secondary to oxygen demand mismatch. Plans to do the cardiac enzymes x3. EKG shows junctional rhythm. Patient is on aspirin, Plavix, atorvastatin and Lovenox. - Time Time Spent with patient: 25-34 minutes Medications reviewed and adjusted accordingly: Yes Anticipated discharge: Home
--- NOTE | 2018-11-23 18:03 | ADVANCED CARE ---
- Diagnosis (1) Acute exacerbation of CHF (congestive heart failure) Diagnosis Current: Yes (2) Pneumonia Diagnosis Current: Yes (3) WINSOME (acute kidney injury) Diagnosis Current: Yes (4) Hypertension Diagnosis Current: No (5) Coronary artery disease Diagnosis Current: No Resuscitation Status: Full Code Discussion: Advance care plan discussed with the patient's and the patient wants to be full code. Patient does not have any living will. Patient does not have any power of securities attorney. is going to resume the status as a power of securities attorney in case of emergency and patient unable to take patients. Care Planning Goals: Plan is to treat the pneumonia and congestive heart failure was the patient is stable she will be discharged home. Time Spent: Time spent more than 20 minutes.
[2018-11-23] MEDS ORDERED: LISINOPRIL 10 MG TABLET PO ONE (18:15)
[2018-11-23 18:40] LABS: CREATINE KINASE MB 0.31 ng/mL (<4.55); TROPONIN I 0.037 ng/mL
[2018-11-23 19:04] LABS: ARTERIAL BLOOD H2CO3 0.87 mmol/L (1.05-1.35); ARTERIAL BLOOD HCO3 23.1 mmol/L (20-24); ARTERIAL BLOOD O2 SATURATION 97.7 % (94-98); ARTERIAL BLOOD PH 7.52 (7.35-7.45); ARTERIAL BLOOD PO2 89.4 mmHg (80-100)
[2018-11-23 19:07] LABS: ARTERIAL BLOOD FIO2 1.5L
[2018-11-23] MEDS: MULTIVITAMIN TABLET PO SCH (19:07)
[2018-11-23] MEDS: CETIRIZINE 10 MG TABLET PO SCH (19:07)
[2018-11-23] MEDS: FUROSEMIDE INJ/PF 40 MG/4 ML SDV IV SCH (19:28)
--- NOTE | 2018-11-23 19:51 | EKG REPORT ---
SEVERITY:- ABNORMAL ECG - ACCELERATED JUNCTIONAL RHYTHM NONSPECIFIC INTRAVENTRICULAR CONDUCTION DELAY LATERAL INFARCT, OLD CONSIDER ANTEROSEPTAL INFARCT : Confirmed by: Sophie Sam MD 23-Nov-2018 19:50:05
[2018-11-23] MEDS: CLOPIDOGREL BISULFATE 75 MG TABLET PO SCH (20:42)
[2018-11-23] MEDS: ASPIRIN 325 MG TABLET, ENT COATED PO SCH (20:42)
[2018-11-23] MEDS: CALCIUM CARBONATE 250 MG/VITAMIN D3 125 UNIT TABLET PO SCH (20:42)
[2018-11-23] MEDS: LEVOTHYROXINE SODIUM 0.088 MG TABLET PO SCH (20:42)
[2018-11-23] MEDS: ENOXAPARIN SODIUM INJ 30 MG/0.3 ML DISP.SYRIN SUBCUT SCH (20:43)
[2018-11-23] MEDS: ATORVASTATIN CALCIUM 40 MG TABLET PO SCH (21:52)
[2018-11-24 01:52] LABS: CREATINE KINASE MB 0.22 ng/mL (<4.55); TROPONIN I 0.035 ng/mL
[2018-11-24] MEDS ORDERED: LEVOTHYROXINE SODIUM 0.088 MG TABLET ONE (06:24)
[2018-11-24] MEDS: PANTOPRAZOLE SODIUM 40 MG TABLET.DR PO SCH ×2 (06:24→17:46)
[2018-11-24] MEDS: FUROSEMIDE INJ/PF 40 MG/4 ML SDV IV SCH (06:24)
[2018-11-24] MEDS: LEVOTHYROXINE SODIUM 0.088 MG TABLET PO SCH (06:26)
[2018-11-24 08:05] LABS: ABSOLUTE LYMPHOCYTES (AUTO) 0.9 10^3/uL (0.5-4.7); ABSOLUTE MONOCYTES (AUTO) 0.3 10^3/uL (0.1-1.4); ABSOLUTE NEUT (AUTO) 4.8 10^3/uL (1.7-8.2); BASOPHILS % (AUTO) 0.2 % (0-2); EOSINOPHILS % (AUTO) 0.4 % (0-6); HEMATOCRIT 36.1 % (36.0-47.0); HEMOGLOBIN 12.3 g/dL (12.0-15.5); LYMPHOCYTES % (AUTO) 15.4 % (13-45); MEAN CORPUSCULAR HEMOGLOBIN 30.7 pg (27.0-33.4); MEAN CORPUSCULAR VOLUME 90 fl (80-97); MONOCYTES % (AUTO) 4.9 % (3-13); PLATELET COUNT 149 10^3/uL (150-450); SEGMENTED NEUTROPHILS % (AUTO) 79.1 % (42-78); TOTAL CELLS COUNTED % (AUTO) 100 %
[2018-11-24 08:24] LABS: CHOLESTEROL 246.84 mg/dL (0-200); CREATINE KINASE 80 U/L (30-135); TRIGLYCERIDES 89 mg/dL (<150)
[2018-11-24 08:35] LABS: CREATINE KINASE MB 0.22 ng/mL (<4.55); DIRECT LDL 133 mg/dL (<100); TROPONIN I 0.033 ng/mL
[2018-11-24] MEDS: ENOXAPARIN SODIUM INJ 30 MG/0.3 ML DISP.SYRIN SUBCUT SCH (09:30)
[2018-11-24] MEDS: MULTIVITAMIN TABLET PO SCH (09:30)
[2018-11-24] MEDS: ASPIRIN 325 MG TABLET, ENT COATED PO SCH (09:30)
[2018-11-24] MEDS: CETIRIZINE 10 MG TABLET PO SCH (09:30)
[2018-11-24] MEDS: CLOPIDOGREL BISULFATE 75 MG TABLET PO SCH (09:30)
[2018-11-24] MEDS: CALCIUM CARBONATE 250 MG/VITAMIN D3 125 UNIT TABLET PO SCH (09:30)
[2018-11-24] MEDS ORDERED: DOXYCYCLINE HYCLATE INJ 100 MG VIAL IV SCH (10:00)
--- NOTE | 2018-11-24 11:17 | XCELERA REPORT ---
[address] [address] Transthoracic Echocardiogram Report Name: LULI NOLAND Age: 77 yrs Gender: Female : 1940 Patient Status: Inpatient Patient Location: [place] [address]^A Study Date: 11/23/2018 08:00 PM Height: 58 in Weight: 117 lb BSA: 1.5 m2 Procedure: A two-dimensional transthoracic echocardiogram with color flow and Doppler was performed. Study Quality: Technically suboptimal. Reason For Study: chf History: chf. Ordering Physician: MICHELLE SAENZ Performed By: Daina Huizar Interpretation Summary The left ventricle is mildly dilated. There is normal left ventricular wall thickness. LV EF is Less than 20% Left ventricular systolic function is severely reduced. There is severe global hypokinesis of the left ventricle. Septal motion is consistent with conduction abnormality There is no thrombus. Cannot assess ASD,VSD , or PFO. The right ventricle is normal in size and function. The right atrium is normal. The left atrial size is normal. There is mild mitral annular calcification. There is no evidence of mitral valve prolapse. There is no vegetation seen on the mitral valve. There is no mitral valve stenosis. There is a mild amount of mitral regurgitation There is no aortic valvular vegetation. There is no aortic valve stenosis There is aortic sclerosis without aortic stenosis. There is no LVOT obstruction. Although no by AV jet , may need dbutamine chllaenge to see if indeed there is a gradient ,if LVEF improves with dobutamine. There is a mild to moderate amount of aortic regurgitation There is no tricuspid stenosis. There is a mild amount of tricuspid regurgitation There is mild pulmonary hypertension by echo RVSP is 34 to 39 mm of Hg , wth RA mean f 5 to 10. There is a moderate amount of pulmonic regurgitation The aortic root is normal size. The inferior vena cava appeared normal and decreased > 50% with respiration (RAP 5-10 mmHg) Minimal pericardial effusion. There are no echocardiographic or Doppler indications for cardiac tamponade MMode/2D Measurements & Calculations RVDd: 2.1 cm LVIDd: 4.6 cm FS: 13.3 % Ao root diam: 2.4 cm IVSd: 1.0 cm LVIDs: 4.0 cm EDV(Teich): 95.5 ml Ao root area: 4.5 cm2 LVPWd: 1.1 cm ESV(Teich): 68.1 ml LA dimension: 3.5 cm EF(Teich): 28.7 % Doppler Measurements & Calculations MV E max shannon: MV P1/2t max shannon: Ao V2 max: AI max shannon: 80.9 cm/sec 86.9 cm/sec 123.4 cm/sec 366.2 cm/sec MV A max shannon: MV P1/2t: 48.4 msec Ao max PG: AI max P.8 cm/sec MVA(P1/2t): 4.5 cm2 6.1 mmHg 53.6 mmHg MV E/A: 1.6 MV dec slope: AI dec slope: 157.6 cm/sec2 525.6 cm/sec2 AI P1/2t: MV dec time: 680.4 msec 0.15 sec LV V1 max PG: PA V2 max: PI end-d shannon: TR max shannon: 2.6 mmHg 58.4 cm/sec 141.8 cm/sec 267.6 cm/sec LV V1 max: PA max P.4 mmHg TR max P.6 cm/sec 28.6 mmHg AV P1/2t-pr_phl: MV P1/2t-pr_phl: 692.5 msec 48.4 msec Left Ventricle The left ventricle is mildly dilated. There is normal left ventricular wall thickness. LV EF is Less than 20%. Left ventricular systolic function is severely reduced. There is severe global hypokinesis of the left ventricle. Septal motion is consistent with conduction abnormality. There is no thrombus. Cannot assess ASD,VSD , or PFO. Right Ventricle The right ventricle is normal in size and function. Atria The right atrium is normal. The left atrial size is normal. Mitral Valve There is mild mitral annular calcification. There is no evidence of mitral valve prolapse. There is no vegetation seen on the mitral valve. There is no mitral valve stenosis. There is a mild amount of mitral regurgitation. Aortic Valve There is no aortic valvular vegetation. There is no aortic valve stenosis. There is aortic sclerosis without aortic stenosis. There is no LVOT obstruction. Although no by AV jet , may need dbutamine chllaenge to see if indeed there is a gradient ,if LVEF improves with dobutamine. There is a mild to moderate amount of aortic regurgitation. Tricuspid Valve There is no tricuspid stenosis. There is a mild amount of tricuspid regurgitation. There is mild pulmonary hypertension by echo. RVSP is 34 to 39 mm of Hg , wth RA mean f 5 to 10. Pulmonic Valve There is no pulmonic valvular stenosis. There is a moderate amount of pulmonic regurgitation. Great Vessels The aortic root is normal size. The inferior vena cava appeared normal and decreased > 50% with respiration (RAP 5-10 mmHg). Effusions Minimal pericardial effusion. There are no echocardiographic or Doppler indications for cardiac tamponade. : MICHELLE SAENZ > Sophie Sam
[2018-11-24] MEDS ORDERED: CLOPIDOGREL BISULFATE 75 MG TABLET PO SCH (13:45)
[2018-11-24] MEDS ORDERED: (PENDING PHARMACY ID) (Lisinopril [Prinivil] 20 MG) PO SCH (13:45)
[2018-11-24] MEDS ORDERED: AMIODARONE HCL 200 MG TABLET PO SCH (13:45)
[2018-11-24] MEDS ORDERED: LISINOPRIL 10 MG TABLET PO SCH (14:00)
[2018-11-24] MEDS ORDERED: LEVOTHYROXINE SODIUM 0.088 MG TABLET PO SCH (14:00)
[2018-11-24 16:10] LABS: FREE T3 1.92 pg/mL (2.77-5.27); FREE T4 (FREE THYROXINE) 3.1 ng/dL (0.78-2.19)
[2018-11-24] MEDS: CEFTRIAXONE 2 GM/D5W RTU 2 GM/50 ML RTUPB IV SCH (17:45)
[2018-11-24] MEDS: ASPIRIN 81 MG TABLET, ENT COATED PO SCH (17:46)
[2018-11-24] MEDS ORDERED: FUROSEMIDE INJ/PF 40 MG/4 ML SDV IV SCH (18:00)
[2018-11-24] MEDS: FUROSEMIDE INJ/PF 20 MG/2 ML SDV IV SCH (18:15)
[2018-11-24] MEDS: DOXYCYCLINE HYCLATE 100 MG in DEXTROSE 5%-WATER 250 ML IV SCH (20:58)
[2018-11-24] MEDS: ATORVASTATIN CALCIUM 40 MG TABLET PO SCH (21:09)
[2018-11-24] MEDS: METOPROLOL TARTRATE 25 MG TABLET PO SCH (21:10)
--- NOTE | 2018-11-24 21:54 | EKG REPORT ---
SEVERITY:- ABNORMAL ECG - VENTRICULAR-PACED COMPLEXES LEFT ATRIAL ABNORMALITY NONSPECIFIC INTRAVENTRICULAR CONDUCTION DELAY BORDERLINE ST DEPRESSION, INFERIOR LEADS : Confirmed by: Sophie Sam MD 24-Nov-2018 21:52:53
[2018-11-24] MEDS ORDERED: ATORVASTATIN CALCIUM 40 MG TABLET PO SCH (22:00)
--- NOTE | 2018-11-24 23:15 | PDOC CONSULTATION ---
Consultation-Blank Consultation: CARDIOLOGY CONSULTATION by Dr. Sophie Sam on 11/24/2018. Patient seen at 10 AM on 11/24/2018. REASON FOR CONSULTATION: Patient admitted with symptoms of congestive heart failure.
[2018-11-25 06:17] LABS: ABSOLUTE EOSINOPHILS # (AUTO) 0.1 10^3/uL (0.0-0.6); ABSOLUTE LYMPHOCYTES (AUTO) 0.8 10^3/uL (0.5-4.7); ABSOLUTE MONOCYTES (AUTO) 0.4 10^3/uL (0.1-1.4); ABSOLUTE NEUT (AUTO) 4.4 10^3/uL (1.7-8.2); BASOPHILS % (AUTO) 0.3 % (0-2); EOSINOPHILS % (AUTO) 1.2 % (0-6); HEMATOCRIT 36.1 % (36.0-47.0); HEMOGLOBIN 12.4 g/dL (12.0-15.5); LYMPHOCYTES % (AUTO) 13.4 % (13-45); MEAN CORPUSCULAR HEMOGLOBIN 30.8 pg (27.0-33.4); MEAN CORPUSCULAR HGB CONC 34.3 g/dL (32.0-36.0); MEAN CORPUSCULAR VOLUME 90 fl (80-97); MONOCYTES % (AUTO) 6.6 % (3-13); PLATELET COUNT 149 10^3/uL (150-450); RED BLOOD COUNT 4.02 10^6/uL (3.72-5.28); RED CELL DISTRIBUTION WIDTH 17.8 % (11.5-14.0); SEGMENTED NEUTROPHILS % (AUTO) 78.5 % (42-78); TOTAL CELLS COUNTED % (AUTO) 100 %; WHITE BLOOD COUNT 5.7 10^3/uL (4.0-10.5)
[2018-11-25] MEDS: LEVOTHYROXINE SODIUM 0.088 MG TABLET PO SCH (06:25)
[2018-11-25] MEDS: PANTOPRAZOLE SODIUM 40 MG TABLET.DR PO SCH ×2 (06:25→18:40)
[2018-11-25] MEDS: FUROSEMIDE INJ/PF 20 MG/2 ML SDV IV SCH ×2 (06:26→18:40)
[2018-11-25 06:38] LABS: ALANINE AMINOTRANSFERASE 44 U/L (9-52); ALBUMIN 3.3 g/dL (3.5-5.0); ALKALINE PHOSPHATASE 105 U/L (38-126); ANION GAP 8 (5-19); ASPARTATE AMINO TRANSFERASE 63 U/L (14-36); BILIRUBIN,DIRECT 0.7 mg/dL (0.0-0.4); BILIRUBIN,TOTAL 0.7 mg/dL (0.2-1.3); BLOOD UREA NITROGEN 19 mg/dL (7-20); CALCIUM 8.8 mg/dL (8.4-10.2); CARBON DIOXIDE 30 mmol/L (22-30); CHLORIDE 100 mmol/L (98-107); GLUCOSE 93 mg/dL (75-110); POTASSIUM 3.3 mmol/L (3.6-5.0); SODIUM 138.4 mmol/L (137-145); TOTAL PROTEIN 6.4 g/dL (6.3-8.2)
[2018-11-25] MEDS: CETIRIZINE 10 MG TABLET PO SCH (10:00)
[2018-11-25] MEDS: CALCIUM CARBONATE 250 MG/VITAMIN D3 125 UNIT TABLET PO SCH (10:00)
[2018-11-25] MEDS: METOPROLOL TARTRATE 25 MG TABLET PO SCH ×2 (10:00→23:48)
[2018-11-25] MEDS ORDERED: (PENDING PHARMACY ID) (Lisinopril [Prinivil] 10 MG) PO SCH (10:00)
[2018-11-25] MEDS: LISINOPRIL 10 MG TABLET PO SCH (10:00)
[2018-11-25] MEDS: ASPIRIN 81 MG TABLET, ENT COATED PO SCH (10:00)
[2018-11-25] MEDS: POTASSIUM CHLORIDE 10 MEQ CAPSULE.ER PO SCH (10:00)
[2018-11-25] MEDS: MULTIVITAMIN TABLET PO SCH (10:01)
[2018-11-25] MEDS: ENOXAPARIN SODIUM INJ 30 MG/0.3 ML DISP.SYRIN SUBCUT SCH (10:01)
[2018-11-25] MEDS: CLOPIDOGREL BISULFATE 75 MG TABLET PO SCH (10:01)
[2018-11-25] MEDS: CEFTRIAXONE 2 GM/D5W RTU 2 GM/50 ML RTUPB IV SCH (18:40)
--- NOTE | 2018-11-25 19:16 | PDOC PROGRESS REPORT ---
Subjective Progress Note for:: 11/24/18 Subjective:: LULI NOLAND is a 77 year old female with history of CHF with defibrillator placement, hypertension, hypothyroidism, hyperlipidemia, CAD s/p PCI with stent in LAD, presented to ED complaints of 3 days history of shortness of breath associated with cough and whitish sputum. Denies any fever but vomited several times since yesterday. Denies any diarrhea or constipation. Complaining of chest tightness. Denies any headaches dizzy spells. Denies any rashes. Denies any problems with urination. As per the family patient is compliant with Lasix. She is a 1 pill at night to sleep. also given the history of fall yesterday onto the carpet. Workup was d one in the emergency room CT scan of the chest indicated bilateral groundglass opacifications suggestive of pneumonia and pulmonary edema. Medical consult was called for admission. 11/14/2018. No acute events overnight. Patient denies any shortness of breath, chest pain, nausea, vomiting, diarrhea, constipation or any urinary symptoms. Reason For Visit: HEART FAILURE Physical Exam Vital Signs: Temp Pulse Resp BP Pulse Ox 97.4 F 81 18 98/56 L 97 11/24/18 11:32 11/24/18 11:32 11/24/18 11:32 11/24/18 11:32 11/24/18 11:32 Intake & Output 11/23/18 11/24/18 11/25/18 06:59 06:59 06:59 Intake Total 50 355 Output Total 1400 850 Balance -1350 -495 Weight 53.3 kg General appearance: PRESENT: no acute distress, well-developed, well-nourished Head exam: PRESENT: atraumatic, normocephalic Respiratory exam: PRESENT: crackles - Bibasilar, decreased breath sounds Cardiovascular exam: PRESENT: bradycardia GI/Abdominal exam: PRESENT: normal bowel sounds, soft. ABSENT: distended, guarding, mass, organolmegaly, rebound, tenderness Extremities exam: PRESENT: full ROM, pedal edema - Trace. ABSENT: calf tendern ess, clubbing Neurological exam: PRESENT: alert, awake, oriented to person, oriented to place, oriented to time, oriented to situation, CN II-XII grossly intact. ABSENT: mary r sensory deficit Skin exam: PRESENT: dry, intact, warm. ABSENT: cyanosis, rash Results Laboratory Results: 11/24/18 07:30 11/23/18 15:20 11/23/18 11/23/18 11/23/18 15:20 15:20 18:28 WBC 8.5 RBC 4.15 Hgb 12.9 Hct 38.1 MCV 92 MCH 31.0 MCHC 33.8 RDW 18.5 H Plt Count 167 Seg Neutrophils % 74.7 Lymphocytes % 18.4 Monocytes % 6.5 Eosinophils % 0.1 Basophils % 0.3 Absolute Neutrophils 6.3 Absolute Lymphocytes 1.6 Absolute Monocytes 0.6 Absolute Eosinophils 0.0 Absolute Basophils 0.0 Carbonic Acid 0.87 L HCO3/H2CO3 Ratio 26:1 ABG pH 7.52 H ABG pCO2 29.0 L ABG pO2 89.4 ABG HCO3 23.1 ABG O2 Saturation 97.7 ABG Base Excess 1.0 FiO2 1.5L Sodium 139.0 Potassium 4.1 Chloride 103 Carbon Dioxide 24 Anion Gap 12 BUN 20 Creatinine 1.49 H Est GFR ( Amer) 41 L Est GFR (Non-Af Amer) 34 L Glucose 165 H Calcium 9.9 Magnesium Total Bilirubin 1.3 AST 78 H ALT 39 Alkaline Phosphatase 120 Total Protein 8.2 Albumin 4.3 Triglycerides Cholesterol LDL Cholesterol Direct VLDL Cholesterol HDL Cholesterol TSH 11/24/18 11/24/18 11/24/18 07:30 07:30 07:30 WBC 6.0 RBC 4.00 Hgb 12.3 Hct 36.1 MCV 90 MCH 30.7 MCHC 34.0 RDW 18.0 H Plt Count 149 L Seg Neutrophils % 79.1 H Lymphocytes % 15.4 Monocytes % 4.9 Eosinophils % 0.4 Basophils % 0.2 Absolute Neutrophils 4.8 Absolute Lymphocytes 0.9 Absolute Monocytes 0.3 Absolute Eosinophils 0.0 Absolute Basophils 0.0 Carbonic Acid HCO3/H2CO3 Ratio ABG pH ABG pCO2 ABG pO2 ABG HCO3 ABG O2 Saturation ABG Base Excess FiO2 Sodium Potassium Chloride Carbon Dioxide Anion Gap BUN Creatinine Est GFR ( Amer) Est GFR (Non-Af Amer) Glucose Calcium Magnesium 2.2 Total Bilirubin AST ALT Alkaline Phosphatase Total Protein Albumin Triglycerides 89 Cholesterol 246.84 H LDL Cholesterol Direct 133 H VLDL Cholesterol 18.0 HDL Cholesterol 74 TSH 15.60 H 11/23/18 11/23/18 11/23/18 15:20 18:05 18:05 Creatine Kinase 116 CK-MB (CK-2) 0.31 Troponin I 0.039 0.037 NT-Pro-B Natriuret Pep [id number] H 11/24/18 11/24/18 11/24/18 01:03 01:03 07:30 Creatine Kinase 86 80 CK-MB (CK-2) 0.22 Troponin I 0.035 NT-Pro-B Natriuret Pep 11/24/18 07:30 Creatine Kinase CK-MB (CK-2) 0.22 Troponin I 0.033 NT-Pro-B Natriuret Pep [id number] H Impressions: Chest X-Ray 11/23/18 14:59 IMPRESSION: Low volume AP examination. Cardiomegaly without acute abnormality of the lungs. No focal airspace opacity. Chest CT 11/23/18 16:11 IMPRESSION: 1. CARDIOMEGALY. CHRONIC INTERSTITIAL CHANGES IN THE LUNGS. SCATTERED PATCHY GROUND-GLASS OPACITIES THROUGHOUT BOTH LUNGS. THESE ARE NONSPECIFIC BUT COULD BE DUE TO PNEUMONITIS SECONDARY TO INFLAMMATION OR INFECTION. DEVELOPING PULMONARY EDEMA COULD BE ANOTHER ETIOLOGY. 2. MULTIPLE LARGE HEPATIC CYSTS, UNCHANGED FROM THE PRIOR CT. Assessment and Plan - Diagnosis (1) Acute exacerbation of CHF (congestive heart failure) Qualifiers: Heart failure type: systolic Qualified Code(s): I50.23 - Acute on chronic systolic (congestive) heart failure Is this a current diagnosis for this admission?: Yes Plan: Acute on chronic CHF exacerbation likely due to noncompliance/pneumonia. Denies any active chest pain. Basilar crackles on physical examination. Troponin 0 0.035, 0.33. BNP 49672 Day 2 of IV Rocephin and doxycycline. Cultures no growth so far. Cardiac diet, strict in and out, diuretics but guided by volume status and vitals, daily weights, beta-torrey, SARY inhibitors. Cardiology consulted. (2) Coronary artery disease Qualifiers: Associated angina: without angina Is this a current diagnosis for this admission?: No Plan: Status post cardiac cath with a stent placement to LAD and RCA, ICD placement 07/2019. Continue DAPT, beta-blockers, SARY, statins. (3) WINSOME (acute kidney injury) Is this a current diagnosis for this admission?: Yes Plan: Resolved. Creatinine on admission 1.4 from 9 up from baseline of 1.1. Daily BMP. Monitor volume status. Monitor electrolytes. Optimize blood pressure (4) Hypertension Is this a current diagnosis for this admission?: No Plan: Normotensive. Continue current meds. Adjust meds as needed. Cardiac diet (5) Pneumonia Qualifiers: Pneumonia type: due to unspecified organism Laterality: bilateral Lung location: unspecified part of lung Qualified Code(s): J18.9 - Pneumonia, unspecified organism Is this a current diagnosis for this admission?: Yes Plan: Likely community-acquired. Improving. Mild bibasilar crackles. Cultures negative. Day 2/5 empiric IV antibiotics.
--- NOTE | 2018-11-25 19:18 | PDOC PROGRESS REPORT ---
Subjective Progress Note for:: 11/25/18 Subjective:: LULI NOLAND is a 77 year old female with history of CHF with defibrillator placement, hypertension, hypothyroidism, hyperlipidemia, CAD s/p PCI with stent in LAD, presented to ED complaints of 3 days history of shortness of breath associated with cough and whitish sputum. Denies any fever but vomited several times since yesterday. Denies any diarrhea or constipation. Complaining of chest tightness. Denies any headaches dizzy spells. Denies any rashes. Denies any problems with urination. As per the family patient is compliant with Lasix. She is a 1 pill at night to sleep. also given the history of fall yesterday onto the carpet. Workup was d one in the emergency room CT scan of the chest indicated bilateral groundglass opacifications suggestive of pneumonia and pulmonary edema. Medical consult was called for admission. 11/24/2018. No acute events overnight. Patient denies any shortness of breath, chest pain, nausea, vomiting, diarrhea, constipation or any urinary symptoms. 11/25/2018. No acute events overnight. Shortness of breath improved. Patient denies any fever, chills, nausea, vomiting, diarrhea, constipation. Reason For Visit: HEART FAILURE Physical Exam Vital Signs: Temp Pulse Resp BP Pulse Ox 97.8 F 80 20 110/67 98 11/25/18 12:14 11/25/18 12:14 11/25/18 12:14 11/25/18 12:14 11/25/18 12:14 Intake & Output 11/24/18 11/25/18 11/26/18 06:59 06:59 06:59 Intake Total 50 892 100 Output Total 1400 1375 625 Balance -1350 -786 -525 Weight 53.3 kg 51.9 kg Results Laboratory Results: 11/25/18 06:00 11/25/18 06:00 11/25/18 11/25/18 11/25/18 06:00 06:00 06:00 WBC 5.7 RBC 4.02 Hgb 12.4 Hct 36.1 MCV 90 MCH 30.8 MCHC 34.3 RDW 17.8 H Plt Count 149 L Seg Neutrophils % 78.5 H Lymphocytes % 13.4 Monocytes % 6.6 Eosinophils % 1.2 Basophils % 0.3 Absolute Neutrophils 4.4 Absolute Lymphocytes 0.8 Absolute Monocytes 0.4 Absolute Eosinophils 0.1 Absolute Basophils 0.0 Sodium 138.4 Potassium 3.3 L Chloride 100 Carbon Dioxide 30 Anion Gap 8 BUN 19 Creatinine 1.13 Est GFR ( Amer) 56 L Est GFR (Non-Af Amer) 47 L Glucose 93 Calcium 8.8 Magnesium 2.1 Total Bilirubin 0.7 AST 63 H ALT 44 Alkaline Phosphatase 105 Total Protein 6.4 Albumin 3.3 L TSH 13.70 H 11/23/18 11/23/18 11/23/18 15:20 18:05 18:05 Creatine Kinase 116 CK-MB (CK-2) 0.31 Troponin I 0.039 0.037 NT-Pro-B Natriuret Pep [id number] H 11/24/18 11/24/18 11/24/18 01:03 01:03 07:30 Creatine Kinase 86 80 CK-MB (CK-2) 0.22 Troponin I 0.035 NT-Pro-B Natriuret Pep 11/24/18 07:30 Creatine Kinase CK-MB (CK-2) 0.22 Troponin I 0.033 NT-Pro-B Natriuret Pep [id number] H Impressions: Chest X-Ray 11/23/18 14:59 IMPRESSION: Low volume AP examination. Cardiomegaly without acute abnormality of the lungs. No focal airspace opacity. Chest CT 11/23/18 16:11 IMPRESSION: 1. CARDIOMEGALY. CHRONIC INTERSTITIAL CHANGES IN THE LUNGS. SCATTERED PATCHY GROUND-GLASS OPACITIES THROUGHOUT BOTH LUNGS. THESE ARE NONSPECIFIC BUT COULD BE DUE TO PNEUMONITIS SECONDARY TO INFLAMMATION OR INFECTION. DEVELOPING PULMONARY EDEMA COULD BE ANOTHER ETIOLOGY. 2. MULTIPLE LARGE HEPATIC CYSTS, UNCHANGED FROM THE PRIOR CT. Assessment and Plan - Diagnosis (1) Acute exacerbation of CHF (congestive heart failure) Qualifiers: Heart failure type: systolic Qualified Code(s): I50.23 - Acute on chronic systolic (congestive) heart failure Is this a current diagnosis for this admission?: Yes Plan: Acute on chronic CHF exacerbation likely due to noncompliance/pneumonia. Denies any active chest pain. Basilar crackles on physical examination. Troponin 0 0.035, 0.33. BNP 71316 Day 3 of IV Rocephin and doxycycline. Cultures no growth so far. Cardiac diet, strict in and out, diuretics but guided by volume status and vitals, daily weights, beta-torrey, SARY inhibitors. Cardiology consulted. (2) Coronary artery disease Qualifiers: Associated angina: without angina Is this a current diagnosis for this admission?: No Plan: Status post cardiac cath with a stent placement to LAD and RCA, ICD placement 04/21/2019. Continue DAPT, beta-blockers, SARY, statins. (3) WINSOME (acute kidney injury) Is this a current diagnosis for this admission?: Yes Plan: Resolved. Creatinine on admission 1.4 from 9 up from baseline of 1.1. Daily BMP. Monitor volume status. Monitor electrolytes. Optimize blood pressure (4) Hypertension Is this a current diagnosis for this admission?: No Plan: Normotensive. Continue current meds. Adjust meds as needed. Cardiac diet (5) Pneumonia Qualifiers: Pneumonia type: due to unspecified organism Laterality: bilateral Lung lo cation: unspecified part of lung Qualified Code(s): J18.9 - Pneumonia, unspecified organism Is this a current diagnosis for this admission?: Yes Plan: Likely community-acquired. Improving. Mild bibasilar crackles. Cultures negative. Day 3/5 empiric IV antibiotics.
[2018-11-25] MEDS: ATORVASTATIN CALCIUM 40 MG TABLET PO SCH (23:48)
[2018-11-25] MEDS: DOXYCYCLINE HYCLATE 100 MG in DEXTROSE 5%-WATER 250 ML IV SCH (23:48)
[2018-11-26] MEDS: FUROSEMIDE INJ/PF 20 MG/2 ML SDV IV SCH ×2 (06:58→17:13)
[2018-11-26] MEDS: LEVOTHYROXINE SODIUM 0.088 MG TABLET PO SCH (06:58)
[2018-11-26] MEDS: PANTOPRAZOLE SODIUM 40 MG TABLET.DR PO SCH ×2 (06:59→17:14)
[2018-11-26] MEDS: METOPROLOL TARTRATE 25 MG TABLET PO SCH ×2 (10:11→22:42)
[2018-11-26] MEDS: CALCIUM CARBONATE 250 MG/VITAMIN D3 125 UNIT TABLET PO SCH (10:12)
[2018-11-26] MEDS: MULTIVITAMIN TABLET PO SCH (10:12)
[2018-11-26] MEDS: CETIRIZINE 10 MG TABLET PO SCH (10:12)
[2018-11-26] MEDS: ASPIRIN 81 MG TABLET, ENT COATED PO SCH (10:12)
[2018-11-26] MEDS: LISINOPRIL 10 MG TABLET PO SCH (10:12)
[2018-11-26] MEDS: ENOXAPARIN SODIUM INJ 30 MG/0.3 ML DISP.SYRIN SUBCUT SCH (10:13)
[2018-11-26] MEDS: POTASSIUM CHLORIDE 10 MEQ CAPSULE.ER PO SCH (10:13)
[2018-11-26] MEDS: CLOPIDOGREL BISULFATE 75 MG TABLET PO SCH (10:13)
--- NOTE | 2018-11-26 14:45 | PDOC PROGRESS REPORT ---
Subjective Progress Note for:: 11/26/18 Subjective:: LULI NOLAND is a 77 year old female with history of CHF with defibrillator placement, hypertension, hypothyroidism, hyperlipidemia, CAD s/p PCI with stent in LAD, presented to ED complaints of 3 days history of shortness of breath associated with cough and whitish sputum. Denies any fever but vomited several times since yesterday. Denies any diarrhea or constipation. Complaining of chest tightness. Denies any headaches dizzy spells. Denies any rashes. Denies any problems with urination. As per the family patient is compliant with Lasix. She is a 1 pill at night to sleep. also given the history of fall yesterday onto the carpet. Workup was d one in the emergency room CT scan of the chest indicated bilateral groundglass opacifications suggestive of pneumonia and pulmonary edema. Medical consult was called for admission. 11/24/2018. No acute events overnight. Patient denies any shortness of breath, chest pain, nausea, vomiting, diarrhea, constipation or any urinary symptoms. 11/25/2018. No acute events overnight. Shortness of breath improved. Patient denies any fever, chills, nausea, vomiting, diarrhea, constipation. 11/26/2018. No acute events overnight. Shortness of breath has improved. Mild bibasilar crackles on physical examination. Denies any fever chills nausea vomiting diarrhea constipation or any urinary symptoms. Plan to discharge home tomorrow. Reason For Visit: HEART FAILURE Physical Exam Vital Signs: Temp Pulse Resp BP Pulse Ox 98.3 F 80 18 100/60 95 11/26/18 11:27 11/26/18 14:00 11/26/18 11:27 11/26/18 11:27 11/26/18 11:27 Intake & Output 11/25/18 11/26/18 11/27/18 06:59 06:59 06:59 Intake Total 892 700 236 Output Total 1376 1950 675 Balance -608 -409 -359 Weight 51.9 kg 50.8 kg General appearance: PRESENT: no acute distress, well-developed, well-nourished Head exam: PRESENT: atraumatic, normocephalic Neck exam: ABSENT: carotid bruit, JVD, lymphadenopathy, thyromegaly Cardiovascular exam: PRESENT: irregular rhythm. ABSENT: diastolic murmur, rubs, systolic murmur GI/Abdominal exam: PRESENT: normal bowel sounds, soft. ABSENT: distended, guarding, mass, organolmegaly, rebound, tenderness Extremities exam: PRESENT: full ROM. ABSENT: calf tenderness, clubbing, pedal edema Results Laboratory Results: 11/25/18 06:00 11/25/18 06:00 11/23/18 11/23/18 11/23/18 15:20 18:05 18:05 Creatine Kinase 116 CK-MB (CK-2) 0.31 Troponin I 0.039 0.037 NT-Pro-B Natriuret Pep [id number] H 11/24/18 11/24/18 11/24/18 01:03 01:03 07:30 Creatine Kinase 86 80 CK-MB (CK-2) 0.22 Troponin I 0.035 NT-Pro-B Natriuret Pep 11/24/18 07:30 Creatine Kinase CK-MB (CK-2) 0.22 Troponin I 0.033 NT-Pro-B Natriuret Pep [id number] H Impressions: Chest X-Ray 11/23/18 14:59 IMPRESSION: Low volume AP examination. Cardiomegaly without acute abnormality of the lungs. No focal airspace opacity. Chest CT 11/23/18 16:11 IMPRESSION: 1. CARDIOMEGALY. CHRONIC INTERSTITIAL CHANGES IN THE LUNGS. SCATTERED PATCHY GROUND-GLASS OPACITIES THROUGHOUT BOTH LUNGS. THESE ARE NONSPECIFIC BUT COULD BE DUE TO PNEUMONITIS SECONDARY TO INFLAMMATION OR INFECTION. DEVELOPING PULMONARY EDEMA COULD BE ANOTHER ETIOLOGY. 2. MULTIPLE LARGE HEPATIC CYSTS, UNCHANGED FROM THE PRIOR CT. Assessment and Plan - Diagnosis (1) Acute exacerbation of CHF (congestive heart failure) Qualifiers: Heart failure type: systolic Qualified Code(s): I50.23 - Acute on chronic systolic (congestive) heart failure Is this a current diagnosis for this admission?: Yes Plan: Acute on chronic CHF exacerbation likely due to noncompliance/pneumonia. Denies any active chest pain. Basilar crackles on physical examination. Troponin 0 0.035, 0.33. BNP 15211 Day 4 of IV Rocephin and doxycycline. Cultures no growth so far. Cardiac diet, strict in and out, diuretics but guided by volume status and vitals, daily weights, beta-torrey, SARY inhibitors. Cardiology consulted. (2) Coronary artery disease Qualifiers: Associated angina: without angina Is this a current diagnosis for this admission?: No Plan: Status post cardiac cath with a stent placement to LAD and RCA, ICD placement 04/21/2019. Continue DAPT, beta-blockers, SARY, statins. (3) WINSOME (acute kidney injury) Is this a current diagnosis for this admission?: Yes Plan: Resolved. Creatinine on admission 1.4 from 9 up from baseline of 1.1. Daily BMP. Monitor volume status. Monitor electrolytes. Optimize blood pressure (4) Hypertension Is this a current diagnosis for this admission?: No Plan: Normotensive. Continue current meds. Adjust meds as needed. Cardiac diet (5) Pneumonia Qualifiers: Pneumonia type: due to unspecified organism Laterality: bilateral Lung location: unspecified part of lung Qualified Code(s): J18.9 - Pneumonia, unspecified organism Is this a current diagnosis for this admission?: Yes Plan: Likely community-acquired. Improving. Mild bibasilar crackles. Cultures negative. Day 4/5 empiric IV antibiotics. (6) Hypokalemia Is this a current diagnosis for this admission?: Yes Plan: Mild. Continue daily supplemental potassium. BMP tomorrow.
[2018-11-26] MEDS: CEFTRIAXONE 2 GM/D5W RTU 2 GM/50 ML RTUPB IV SCH (17:13)
[2018-11-26] MEDS: DOXYCYCLINE HYCLATE 100 MG in DEXTROSE 5%-WATER 250 ML IV SCH (20:35)
[2018-11-26] MEDS: ATORVASTATIN CALCIUM 40 MG TABLET PO SCH (22:43)
--- NOTE | 2018-11-26 23:12 | Progress Note ---
Provider Note Provider Note: CARDIOLOGY PROGRESS NOTE by Dr. Sophie Sam on 11/26/2018. SUBJECTIVE: The patient denies any chest pain or discomfort. There is no ventricular tachycardia on the monitor. There is no firing of an AICD. The patient denies any cough or wheezing. There is no PND orthopnea there is no leg edema. There is no TIA CVA symptoms. PATIENT is well-built and well-nourished in no acute distress. Selected Entries 11/26/18 15:28 Temperature 98.2 F Temperature Oral Source Pulse Rate 80 Respiratory 18 Rate Blood Pressure 102/57 L Blood Pressure 72 Mean BP Location Left Arm BP Position Supine O2 Sat by Pulse 97 Oximetry Oxygen Delivery Room Air Method HEAD: Is atraumatic normocephalic. EYES: Pupils equal round regular react to light and accommodation. Normal. There is no clinical pallor. There is no scleral icterus. ENT is negative. Neck: Is supple. There is no JVD. Carotids are equal there is no bruits. There is no lymphadenopathy. There is no accessory muscles of respiration use. Trachea central. LUNGS: There are a few bibasilar crackles which on patient coughing resolved. There is no rales of CHF at present. There is no rhonchi or wheezing. Heart S1-S2 is heard. There is no S3 gallop. There is no S4 gallop. There is systolic murmur left sternal border and the apex there is no rub. ABDOMEN: Soft. Nontender there is no hepatosplenic megaly bowel sounds are well heard. Leg pulses slightly diminished. There is no pedal edema. There is no DVT or cellulitis. There is no calf tenderness. There is no cyanosis or clubbing. [employer] DEVELOPER: Patient is conscious awake alert oriented x3 with no focal deficits. PSYCHIATRIC: Patient judgment insight are intact her affect is normal. Chest X-Ray 11/23/18 14:59 IMPRESSION: Low volume AP examination. Cardiomegaly without acute abnormality of the lungs. No focal airspace opacity. Chest CT 11/23/18 16:11 IMPRESSION: 1. CARDIOMEGALY. CHRONIC INTERSTITIAL CHANGES IN THE LUNGS. SCATTERED PATCHY GROUND-GLASS OPACITIES THROUGHOUT BOTH LUNGS. THESE ARE NONSPECIFIC BUT COULD BE DUE TO PNEUMONITIS SECONDARY TO INFLAMMATION OR INFECTION. DEVELOPING PULMONARY EDEMA COULD BE ANOTHER ETIOLOGY. 2. MULTIPLE LARGE HEPATIC CYSTS, UNCHANGED FROM THE PRIOR CT. IMPRESSION/RECOMMENDATION: Mixed dilated and ischemic cardiomyopathy. 1. Acute on chronic systolic heart failure. At present compensated. Patient without any symptoms of all signs of heart failure present. Continue current medical regimen, but would recommend convert the patient is IV Lasix to p.o. Lasix. 2. Mixed dilated and ischemic cardiomyopathy: Stable continue current anti- cardiomyopathy treatment as is being done with beta-blockers and SARY inhibitor 3. Coronary artery disease history of percutaneous intervention with stent to the LAD in 2018. Patient without any symptoms of angina. Continue current anti-CAD medication. Continue beta-torrey, aspirin and statin. Continue Plavix 4. History of sick sinus syndrome: The patient initially had a permanent pacem comfort placed. Subsequently the patient had a cardiac arrest single chamber ICD placed. Her recent interrogation of the ICD was that the patient shocks from the ICD, there are plans to convert the patient to a bi V- ICD since the patient's pacemaker dependent. 5.: Patient status post ICD. 6. Hypothyroidism: Continue thyroid replacement. 7. Hyperlipidemia: Continue statin Medications reviewed. Management plan discussed with attending physician. Medical decision making is of moderate complexity. 40 minutes spent on this patient more than 50% of time spent in direct patient care. Will sign off the case. Patient will follow up with her steffen house supervisor Dr. Quintero as an outpatient.
[2018-11-27] MEDS: PANTOPRAZOLE SODIUM 40 MG TABLET.DR PO SCH ×2 (05:44→17:51)
[2018-11-27] MEDS: FUROSEMIDE INJ/PF 20 MG/2 ML SDV IV SCH (05:44)
[2018-11-27] MEDS: LEVOTHYROXINE SODIUM 0.088 MG TABLET PO SCH (05:57)
[2018-11-27 06:08] LABS: ANION GAP 11 (5-19); BLOOD UREA NITROGEN 17 mg/dL (7-20); CALCIUM 8.9 mg/dL (8.4-10.2); CARBON DIOXIDE 29 mmol/L (22-30); CHLORIDE 97 mmol/L (98-107); GLUCOSE 95 mg/dL (75-110); SODIUM 137.3 mmol/L (137-145)
[2018-11-27 06:12] LABS: POTASSIUM 2.6 mmol/L (3.6-5.0)
[2018-11-27] MEDS: POTASSIUM CHLORIDE 20 MEQ/50 ML RTU IV SCH ×2 (07:22→09:25)
[2018-11-27] MEDS ORDERED: POTASSIUM CHLORIDE 10 MEQ CAPSULE.ER PO ONE (07:46)
[2018-11-27] MEDS: CALCIUM CARBONATE 250 MG/VITAMIN D3 125 UNIT TABLET PO SCH (09:22)
[2018-11-27] MEDS: CLOPIDOGREL BISULFATE 75 MG TABLET PO SCH (09:23)
[2018-11-27] MEDS: MULTIVITAMIN TABLET PO SCH (09:23)
[2018-11-27] MEDS: ASPIRIN 81 MG TABLET, ENT COATED PO SCH (09:23)
[2018-11-27] MEDS: CETIRIZINE 10 MG TABLET PO SCH (09:23)
[2018-11-27] MEDS: ENOXAPARIN SODIUM INJ 30 MG/0.3 ML DISP.SYRIN SUBCUT SCH (09:24)
[2018-11-27] MEDS: POTASSIUM CHLORIDE 10 MEQ CAPSULE.ER PO SCH ×4 (09:24→17:51)
[2018-11-27] MEDS: LISINOPRIL 10 MG TABLET PO SCH (09:35)
[2018-11-27] MEDS: METOPROLOL TARTRATE 25 MG TABLET PO SCH ×2 (09:35→22:19)
[2018-11-27] MEDS: AMIODARONE HCL 200 MG TABLET PO SCH (12:12)
[2018-11-27] MEDS: CEFTRIAXONE 2 GM/D5W RTU 2 GM/50 ML RTUPB IV SCH (17:51)
--- NOTE | 2018-11-27 17:54 | PDOC PROGRESS REPORT ---
Subjective Progress Note for:: 11/27/18 Subjective:: LULI NOLAND is a 77 year old female with history of CHF with defibrillator placement, hypertension, hypothyroidism, hyperlipidemia, CAD s/p PCI with stent in LAD, presented to ED complaints of 3 days history of shortness of breath associated with cough and whitish sputum. Denies any fever but vomited several times since yesterday. Denies any diarrhea or constipation. Complaining of chest tightness. Denies any headaches dizzy spells. Denies any rashes. Denies any problems with urination. As per the family patient is compliant with Lasix. She is a 1 pill at night to sleep. also given the history of fall yesterday onto the carpet. Workup was d one in the emergency room CT scan of the chest indicated bilateral groundglass opacifications suggestive of pneumonia and pulmonary edema. Medical consult was called for admission. 11/24/2018. No acute events overnight. Patient denies any shortness of breath, chest pain, nausea, vomiting, diarrhea, constipation or any urinary symptoms. 11/25/2018. No acute events overnight. Shortness of breath improved. Patient denies any fever, chills, nausea, vomiting, diarrhea, constipation. 11/26/2018. No acute events overnight. Shortness of breath has improved. Mild bibasilar crackles on physical examination. Denies any fever chills nausea vomiting diarrhea constipation or any urinary symptoms. Plan to discharge home tomorrow. No acute events overnight. Soreness of breath has improved. Denies any fever, chills, nausea, vomiting, diarrhea, constipation or any urinary symptoms. p.o. tolerant and ambulatory with help desk assistant of the nursing staff. She has hypokalemia and her systolic blood pressure has been in the high 90s, on physical examination she still has bibasilar crackles. We will switch IV Lasix twice daily to p.o. once daily. If BP is stable and physical examination has improved we will DC home tomorrow. Reason For Visit: HEART FAILURE Physical Exam Vital Signs: Temp Pulse Resp BP Pulse Ox 97.7 F 77 16 98/61 L 97 11/27/18 11:12 11/27/18 11:12 11/27/18 11:12 11/27/18 11:12 11/27/18 11:12 Intake & Output 11/26/18 11/27/18 11/28/18 06:59 06:59 06:59 Intake Total 700 1008 250 Output Total 1650 1825 200 Balance -950 -817 50 Weight 50.8 kg 49.4 kg General appearance: PRESENT: no acute distress, well-developed, well-nourished Neck exam: ABSENT: carotid bruit, JVD, lymphadenopathy, thyromegaly Respiratory exam: PRESENT: crackles. ABSENT: rales, rhonchi, wheezes Cardiovascular exam: PRESENT: RRR. ABSENT: diastolic murmur, rubs, systolic murmur GI/Abdominal exam: PRESENT: normal bowel sounds, soft. ABSENT: distended, guarding, mass, organolmegaly, rebound, tenderness Extremities exam: PRESENT: full ROM. ABSENT: calf tenderness, clubbing, pedal edema Results Laboratory Results: 11/25/18 06:00 11/27/18 05:17 11/27/18 11/27/18 05:17 05:17 Sodium 137.3 Potassium 2.6 L* Chloride 97 L Carbon Dioxide 29 Anion Gap 11 BUN 17 Creatinine 0.94 Est GFR ( Amer) > 60 Est GFR (Non-Af Amer) 58 L Glucose 95 Calcium 8.9 Magnesium 2.2 11/23/18 11/23/18 11/23/18 15:20 18:05 18:05 Creatine Kinase 116 CK-MB (CK-2) 0.31 Troponin I 0.039 0.037 NT-Pro-B Natriuret Pep [id number] H 11/24/18 11/24/18 11/24/18 01:03 01:03 07:30 Creatine Kinase 86 80 CK-MB (CK-2) 0.22 Troponin I 0.035 NT-Pro-B Natriuret Pep 11/24/18 07:30 Creatine Kinase CK-MB (CK-2) 0.22 Troponin I 0.033 NT-Pro-B Natriuret Pep 17469 H Impressions: Chest X-Ray 11/23/18 14:59 IMPRESSION: Low volume AP examination. Cardiomegaly without acute abnormality of the lungs. No focal airspace opacity. Chest CT 11/23/18 16:11 IMPRESSION: 1. CARDIOMEGALY. CHRONIC INTERSTITIAL CHANGES IN THE LUNGS. SCATTERED PATCHY GROUND-GLASS OPACITIES THROUGHOUT BOTH LUNGS. THESE ARE NONSPECIFIC BUT COULD BE DUE TO PNEUMONITIS SECONDARY TO INFLAMMATION OR INFECTION. DEVELOPING PULMONARY EDEMA COULD BE ANOTHER ETIOLOGY. 2. MULTIPLE LARGE HEPATIC CYSTS, UNCHANGED FROM THE PRIOR CT. Assessment and Plan - Diagnosis (1) Acute exacerbation of CHF (congestive heart failure) Qualifiers: Heart failure type: systolic Qualified Code(s): I50.23 - Acute on chronic systolic (congestive) heart failure Is this a current diagnosis for this admission?: Yes Plan: Acute on chronic systolic hear failure exacerbation likely due to noncompliance/pneumonia. Denies any active chest pain. Basilar crackles on physical examination. Troponin 0 0.035, 0.33. BNP 82383 Day 5 of IV Rocephin and doxycycline. DC abx. Cultures negative. Cardiac diet, strict in and out, switch diuretics once daily to PO, continue be ta-torrey, SARY inhibitors. Cardiology consulted. Recommendations Noted. (2) Coronary artery disease Qualifiers: Associated angina: without angina Is this a current diagnosis for this admission?: No Plan: Status post cardiac cath with a stent placement to LAD and RCA, ICD placement 04/21/2019. Continue DAPT, beta-blockers, SARY, statins. (3) WINSOME (acute kidney injury) Is this a current diagnosis for this admission?: Yes Plan: Resolved. Creatinine on admission 1.4 from 9 up from baseline of 1.1. Daily BMP. Monitor volume status. Monitor electrolytes. Optimize blood pressure (4) Hypertension Is this a current diagnosis for this admission?: No Plan: SBP in the 90s, asymptomatic. Switch Lasix IV BID to PO once daily. Monitor vitals. Adjust meds as needed. Cardiac diet (5) Pneumonia Qualifiers: Pneumonia type: due to unspecified organism Laterality: bilateral Lung location: unspecified part of lung Qualified Code(s): J18.9 - Pneumonia, unspecified organism Is this a current diagnosis for this admission?: Yes Plan: Likely community-acquired. Improving. Mild bibasilar crackles. Cultures negative. Day 5/5 empiric IV antibiotics. Cultures negative. DC abx. (6) Hypokalemia Is this a current diagnosis for this admission?: Yes Plan: Replaced. Continue daily supplemental potassium. BMP tomorrow.
[2018-11-27] MEDS ORDERED: MEXILETINE HCL 150 MG CAPSULE PO ONE (19:00)
[2018-11-27] MEDS ORDERED: MEXILETINE HCL 150 MG CAPSULE ONE (19:44)
[2018-11-27] MEDS: DOXYCYCLINE HYCLATE 100 MG in DEXTROSE 5%-WATER 250 ML IV SCH (21:02)
[2018-11-27] MEDS: ATORVASTATIN CALCIUM 40 MG TABLET PO SCH (22:19)
[2018-11-28] MEDS: PANTOPRAZOLE SODIUM 40 MG TABLET.DR PO SCH (06:05)
[2018-11-28] MEDS: LEVOTHYROXINE SODIUM 0.088 MG TABLET PO SCH (06:05)
[2018-11-28 06:33] LABS: ANION GAP 8 (5-19); BLOOD UREA NITROGEN 21 mg/dL (7-20); CALCIUM 9.4 mg/dL (8.4-10.2); CARBON DIOXIDE 25 mmol/L (22-30); CHLORIDE 106 mmol/L (98-107); GLUCOSE 93 mg/dL (75-110); POTASSIUM 3.8 mmol/L (3.6-5.0); SODIUM 138.5 mmol/L (137-145)
[2018-11-28] MEDS: MULTIVITAMIN TABLET PO SCH (09:47)
[2018-11-28] MEDS: CETIRIZINE 10 MG TABLET PO SCH (09:47)
[2018-11-28] MEDS: CALCIUM CARBONATE 250 MG/VITAMIN D3 125 UNIT TABLET PO SCH (09:48)
[2018-11-28] MEDS: ASPIRIN 81 MG TABLET, ENT COATED PO SCH (09:53)
[2018-11-28] MEDS: ENOXAPARIN SODIUM INJ 30 MG/0.3 ML DISP.SYRIN SUBCUT SCH (09:54)
[2018-11-28] MEDS: LISINOPRIL 10 MG TABLET PO SCH (09:54)
[2018-11-28] MEDS: POTASSIUM CHLORIDE 10 MEQ CAPSULE.ER PO SCH ×2 (09:54→13:01)
[2018-11-28] MEDS: AMIODARONE HCL 200 MG TABLET PO SCH (09:54)
[2018-11-28] MEDS: CLOPIDOGREL BISULFATE 75 MG TABLET PO SCH (09:54)
[2018-11-28] MEDS ORDERED: MEXILETINE HCL 150 MG CAPSULE PO SCH (10:00)
[2018-11-28] MEDS ORDERED: FUROSEMIDE 20 MG TABLET PO SCH (10:00)
[2018-11-28] MEDS ORDERED: METOPROLOL SUCCINATE 25 MG TAB.SR.24H PO SCH (10:00)
[2018-11-28] MEDS ORDERED: FUROSEMIDE INJ/PF 20 MG/2 ML SDV IV SCH (10:00)
[2018-11-28 16:43] VITALS: BP 101/50
--- NOTE | 2018-11-28 17:43 | PDOC DISCHARGE SUMMARY ---
General - Admit/Disc Date/PCP Admission Date/Primary Care Provider: 11/23/18 17:33 ROLF LEE MD Discharge Date: 11/28/18 - Discharge Diagnosis (1) Acute exacerbation of CHF (congestive heart failure) Is this a current diagnosis for this admission?: Yes (2) Coronary artery disease Is this a current diagnosis for this admission?: No (3) WINSOME (acute kidney injury) Is this a current diagnosis for this admission?: Yes (4) Hypertension Is this a current diagnosis for this admission?: No (5) Pneumonia Is this a current diagnosis for this admission?: Yes (6) Hypokalemia Is this a current diagnosis for this admission?: Yes - Additional Information Resuscitation Status: Full Code Discharge Diet: As Tolerated, Cardiac Discharge Activity: Activity As Tolerated, Balance Activity w/Rest, Weigh Daily Prescriptions: Lisinopril [Prinivil] 10 mg PO DAILY 30 Days #30 tablet Home Medications: Amiodarone HCl [Cordarone 200 mg Tablet] 100 mg PO DAILY 11/23/18 Aspirin [Ecotrin 81 mg EC Tablet] 81 mg PO DAILY 11/23/18 Atorvastatin Calcium [Lipitor 40 mg Tablet] 40 mg PO QHS 11/23/18 Cetirizine HCl [Zyrtec 10 mg Tablet] 10 mg PO DAILY 11/23/18 Clopidogrel Bisulfate [Plavix 75 mg Tablet] 75 mg PO DAILY 11/23/18 Furosemide [Lasix 20 mg Tablet] 20 mg PO DAILY 11/23/18 Levothyroxine Sodium [Synthroid 0.088 mg Tablet] 0.088 mg PO Q6AM 11/23/18 Metoprolol Succinate [Toprol Xl 25 mg Tab.sr] 12.5 mg PO DAILY 11/23/18 Mexiletine HCl [Mexitil 150 mg Capsule] 150 mg PO BID 11/23/18 Polyethylene Glycol 3350 [Miralax Powder 17 gm/Packet] 17 gm PO DAILYP PRN 11/23/18 Potassium Chloride [Klor-Con M20] 20 meq PO DAILY 11/23/18 Lisinopril [Prinivil] 10 mg PO DAILY 30 Days #30 tablet 11/28/18 History of Present Illness History of Present Illness: LULI NOLAND is a 77 year old female with history of CHF with defibrillator placement, hypertension, hypothyroidism, hyperlipidemia, CAD s/p PCI with stent in LAD, presented to ED complaints of 3 days history of shortness of breath associated with cough and whitish sputum. Denies any fever but vomited several times since yesterday. Denies any diarrhea or constipation. Complaining of chest tightness. Denies any headaches dizzy spells. Denies any rashes. Denies any problems with urination. As per the family patient is compliant with Lasix. She is a 1 pill at night to sleep. also given the history of fall yesterday onto the carpet. Workup was done in the emergency room CT scan of the chest indicated bilateral groundglass opacifications suggestive of pneumonia and pulmonary edema. Medical consult was called for admission. 11/24/2018. No acute events overnight. Patient denies any shortness of breath, chest pain, nausea, vomiting, diarrhea, constipation or any urinary symptoms. 11/25/2018. No acute events overnight. Shortness of breath improved. Patient denies any fever, chills, nausea, vomiting, diarrhea, constipation. 11/26/2018. No acute events overnight. Shortness of breath has improved. Mild bibasilar crackles on physical examination. Denies any fever chills nausea vomiting diarrhea constipation or any urinary symptoms. Plan to discharge home tomorrow. No acute events overnight. Soreness of breath has improved. Denies any fever, chills, nausea, vomiting, diarrhea, constipation or any urinary symptoms. p.o. tolerant and ambulatory with preschool teacher's assistant of the nursing staff. She has hypokalemia and her systolic blood pressure has been in the high 90s, on physical examination she still has bibasilar crackles. We will switch IV Lasix twice daily to p.o. once daily. Hospital Course Hospital Course: (1) Acute exacerbation of CHF (congestive heart failure) Acute on chronic systolic hear failure exacerbation likely due to noncompliance/pneumonia. Troponin 0 0.035, 0.33. BNP 06225 Day 5/5 of IV Rocephin and doxycycline. DC abx. Cultures negative. Cardiac diet, strict in and out, switch diuretics once daily to PO, continue beta-torrey, SARY inhibitors. Cardiology consulted. Recommendations Noted. (2) Coronary artery disease Status post cardiac cath with a stent placement to LAD and RCA, ICD placement 04/21/2019. Continue DAPT, beta-blockers, SARY, statins. (3) WINSOME (acute kidney injury) Resolved. Creatinine on admission 1.4 from 9 up from baseline of 1.1. Daily BMP. Monitor volume status. Monitor electrolytes. Optimize blood pressure (4) Hypertension SBP in the 90s, asymptomatic. Switch Lasix IV BID to PO once daily. Monitor vitals. Adjust meds as needed. Cardiac diet Normotensive on discharge. Lasix was switched back to PO once daily. Lisinopril decreased to 10 mg daily from 20 mg daily because of asymptomatic hypotension. . Pt was asked to check bp at home and follow up with pcp. If SPB >130, increase lisinopril back to 20 mg /daily. (5) Pneumonia Likely community-acquired. Improving. Mild bibasilar crackles. Cultures negative. Day 12/12 empiric IV antibiotics. Cultures negative. DC abx. (6) Hypokalemia Repeat potassium wnl. Physical Exam Vital Signs: Temp Pulse Resp BP Pulse Ox 97.6 F 80 16 101/50 L 99 11/28/18 16:41 11/28/18 16:41 11/28/18 16:41 11/28/18 16:41 11/28/18 16:41 Intake & Output 11/27/18 11/28/18 11/29/18 06:59 06:59 06:59 Intake Total 1008 830 118 Output Total 1825 500 Balance -817 330 118 Weight 49.4 kg 49.4 kg General appearance: PRESENT: no acute distress, well-developed, well-nourished Head exam: PRESENT: atraumatic, normocephalic Eye exam: PRESENT: conjunctiva pink, EOMI, PERRLA. ABSENT: scleral icterus Ear exam: PRESENT: normal external ear exam Mouth exam: PRESENT: moist, tongue midline Neck exam: ABSENT: carotid bruit, JVD, lymphadenopathy, thyromegaly Respiratory exam: PRESENT: clear to auscultation abdullahi. ABSENT: rales, rhonchi, wheezes Cardiovascular exam: PRESENT: RRR. ABSENT: diastolic murmur, rubs, systolic mu rmur Pulses: PRESENT: normal dorsalis pedis pul Vascular exam: PRESENT: normal capillary refill GI/Abdominal exam: PRESENT: normal bowel sounds, soft. ABSENT: distended, guarding, mass, organolmegaly, rebound, tenderness Rectal exam: PRESENT: deferred Extremities exam: PRESENT: full ROM. ABSENT: calf tenderness, clubbing, pedal edema Neurological exam: PRESENT: alert, awake, oriented to person, oriented to place, oriented to time, oriented to situation, CN II-XII grossly intact. ABSENT: motor sensory deficit Psychiatric exam: PRESENT: appropriate affect, normal mood. ABSENT: homicidal ideation, suicidal ideation Skin exam: PRESENT: dry, intact, warm. ABSENT: cyanosis, rash Results Laboratory Results: 11/25/18 06:00 11/28/18 05:18 11/28/18 05:18 Sodium 138.5 Potassium 3.8 Chloride 106 Carbon Dioxide 25 Anion Gap 8 BUN 21 H Creatinine 0.99 Est GFR ( Amer) > 60 Est GFR (Non-Af Amer) 54 L Glucose 93 Calcium 9.4 11/23/18 11/23/18 11/23/18 15:20 18:05 18:05 Creatine Kinase 116 CK-MB (CK-2) 0.31 Troponin I 0.039 0.037 NT-Pro-B Natriuret Pep [id number] H 11/24/18 11/24/18 11/24/18 01:03 01:03 07:30 Creatine Kinase 86 80 CK-MB (CK-2) 0.22 Troponin I 0.035 NT-Pro-B Natriuret Pep 11/24/18 07:30 Creatine Kinase CK-MB (CK-2) 0.22 Troponin I 0.033 NT-Pro-B Natriuret Pep [id number] H Impressions: Chest X-Ray 11/23/18 14:59 IMPRESSION: Low volume AP examination. Cardiomegaly without acute abnormality of the lungs. No focal airspace opacity. Chest CT 11/23/18 16:11 IMPRESSION: 1. CARDIOMEGALY. CHRONIC INTERSTITIAL CHANGES IN THE LUNGS. SCATTERED PATCHY GROUND-GLASS OPACITIES THROUGHOUT BOTH LUNGS. THESE ARE NONSPECIFIC BUT COULD BE DUE TO PNEUMONITIS SECONDARY TO INFLAMMATION OR INFECTION. DEVELOPING PULMONARY EDEMA COULD BE ANOTHER ETIOLOGY. 2. MULTIPLE LARGE HEPATIC CYSTS, UNCHANGED FROM THE PRIOR CT. Qualifiers - * PATIENT BEING DISCHARGED WITH ANY OF THE FOLLOWING DIAGNOSIS: No
== END 2018-11-28 17:18 | disposition home health service (06) | DRG 291 ==
LOC: ER 14:24 → EH 17:33 → 3S 22:34
PROVIDERS: ADMIT Internal Medicine; ATTEND Internal Medicine
PROC: 5A09357 Assistance with Respiratory Ventilation, Less than 24 Consecutive Hours, Continuous Positive Airway Pressure (ICD-10-PCS; principal; 2018-11-23)
DX: I11.0 Hypertensive heart disease with heart failure (principal); J18.9 Pneumonia, unspecified organism; N17.9 Acute kidney failure, unspecified; I50.43 Acute on chronic combined systolic (congestive) and diastolic (congestive) heart failure; E87.6 Hypokalemia; I25.10 Atherosclerotic heart disease of native coronary artery without angina pectoris; Z95.810 Presence of automatic (implantable) cardiac defibrillator; E03.9 Hypothyroidism, unspecified; Z95.5 Presence of coronary angioplasty implant and graft; Z91.81 History of falling; Z91.19 Patient's noncompliance with other medical treatment and regimen; Z90.49 Acquired absence of other specified parts of digestive tract; Z79.899 Other long term (current) drug therapy
CPT/HCPCS: 36415; 36600; 71045; 71250; 80048; 80053; 80061; 82550; 82553; 82803; 83036; 83735; 83880; 84439; 84443; 84481; 84484; 85025; 87040; 93005; 93010; 93306; 99285; J0696; J1650; J1940; J3480; J3490; J7060